=== PATIENT | male | born 1950 | race Caucasian/White ===

== ENCOUNTER → 2017-09-06 | Outpatient (CLI) | payer MEDICARE | END | disposition home or self-care (01) | LOC: KCIC 08:36 | DX: M16.12 Unilateral primary osteoarthritis, left hip (principal); G89.29 Other chronic pain | CPT/HCPCS: 73502 ==

== ENCOUNTER → 2019-03-18 | Outpatient (CLI) | payer MEDICARE ==
[~2019-03-18] MED LIST: ACIT25CA PO; ATOR40TA PO; FERR-36 PO; MULT-121 PO; NAPR220T70 PO; PANT40TA77 PO
[2019-03-18 09:36] LABS: BASO # 0.1 x10^3/uL (0.0-0.2); BASO % 1 % (0-3); EOS # 0.4 x10^3/uL (0.0-0.7); EOS % 5 % (0-3); HEMATOCRIT 48.4 % (39.0-53.0); HEMOGLOBIN 16.2 g/dL (13.0-17.5); LYMPH # 1.4 x10^3/uL (1.0-4.8); LYMPH % 21 % (24-48); MEAN CORPUSCULAR HEMOGLOBIN 34 pg (25-35); MEAN CORPUSCULAR HGB CONC 34 g/dL (31-37); MEAN CORPUSCULAR VOLUME 101 fL (79-100); MONO # 0.6 x10^3/uL (0.0-1.1); MONO % 9 % (0-9); NEUT # 4.5 x10^3/uL (1.8-7.7); NEUT % 64 % (31-73); PLATELET COUNT 242 x10^3/uL (140-400); RED CELL DISTRIBUTION WIDTH 13.2 % (11.5-14.5)
[2019-03-18 09:45] LABS: PROTHROMBIN TIME PATIENT 12.3 SEC (11.7-14.0)
[2019-03-18 09:50] LABS: ALBUMIN 4.1 g/dL (3.4-5.0); CALCIUM 9.2 mg/dL (8.5-10.1); GFR 74.5; POTASSIUM 4.1 mmol/L (3.5-5.1)
--- NOTE | 2019-03-18 12:49 | EKG ---
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
--- NOTE | 2019-03-18 14:55 | RAD ---
CHEST PA LATERAL INDICATION: Preop examination. COMPARISON STUDY: None. FINDINGS: Lungs: Normal lung volume. No pulmonary mass or consolidation. The tracheobronchial tree and hilar structures are normal. Pleura: No pleural effusion or pneumothorax. Heart and Mediastinum: The cardiomediastinal silhouette is normal. Tortuosity of the thoracic aorta. Bones and Soft Tissues: Degenerative changes of the spine. IMPRESSION: No acute cardiopulmonary process. Electronically signed by: Esau Condon MD (03/18/2019 2:52 PM) [facility]
== END | disposition home or self-care (01) ==
LOC: SURGPAT 12:30
PROVIDERS: ATTEND Orthopaedic Surgery
DX: Z01.818 Encounter for other preprocedural examination (principal); M16.12 Unilateral primary osteoarthritis, left hip; E78.5 Hyperlipidemia, unspecified
CPT/HCPCS: 36415; 71046; 80048; 82040; 82306; 85025; 85610; 85651; 85730; 87641; 93005

== ENCOUNTER 2019-03-26 08:16 | Inpatient (IN) | payer MEDICARE ==
[2019-03-26] VITALS (8 sets, daily range): BP systolic 92–132; BP diastolic 59–81
[~2019-03-26] VITALS: Ht 177.8 cm; Wt 85.0 kg
[~2019-03-26 08:16] MED LIST changes: +ACETAMINOPHEN 500 MG TABLET PO PRN; +GABAPENTIN 300 MG CAPSULE. PO PRN; +IV RINGERS,LACTATED 1000ML 1,000 ML IV SCH; +LIDOCAINE 1% PF 2 ML VIAL. ID PRN; +ONDANSETRON PF 4 MG/2 ML VIAL. IV PRN; +PROCHLORPERAZINE 10 MG/2 ML VIAL. IV PRN; +TRANEXAMIC ACID 1,000 MG in IV NS 50ML -- 1ST BAG INJ ONE; +TRANEXAMIC ACID 1,000 MG in IV NS 50ML -- 2ND BAG INJ ONE; +fentaNYL PF VIAL 100 MCG/2 ML VIAL IV PRN
[2019-03-26] MEDS ORDERED: DEXAMETHASONE SOD PHOS 4 MG/ML VIAL ONE (08:45)
[2019-03-26] MEDS ORDERED: ROCURONIUM 50 MG/5 ML VIAL. ONE (08:45)
[2019-03-26] MEDS ORDERED: PROPOFOL 20 ML IV ONE (08:45)
[2019-03-26] MEDS ORDERED: LIDOCAINE 2% PF 5 ML VIAL. ONE (08:45)
[2019-03-26] MEDS ORDERED: ONDANSETRON PF 4 MG/2 ML VIAL. ONE (08:45)
[2019-03-26] MEDS ORDERED: fentaNYL PF VIAL 100 MCG/2 ML VIAL ONE ×2 (08:46→11:31)
[2019-03-26 09:54] LABS: PROTHROMBIN TIME PATIENT 13.1 SEC (11.7-14.0)
[2019-03-26] MEDS ORDERED: WARF-78 PO (09:57)
--- NOTE | 2019-03-26 10:02 | HP ---
ADMIT DATE: 03/26/2019 CHIEF COMPLAINT: Bilateral hip pain, left worse than right. HISTORY OF PRESENT ILLNESS: The patient has a couple of years or more of bilateral hip pain, left worse than right that has been very severe recently that occurs in the hip and groin area, sometimes sharp and worse with significant exertion, especially being on his feet for an extended period of time playing golf. He had a recent GI bleed due to anti-inflammatories, which was treated at [facility]. PAST MEDICAL HISTORY: Significant for the GI bleed, esophagitis, prostate cancer, psoriasis, hyperlipidemia. PAST SURGICAL HISTORY: Prostatectomy and hernia repair. FAMILY HISTORY: Mother was from complications of tuberculosis. Father from a blood clot at 88 years old and family history also of heart attack and stroke. SOCIAL HISTORY: He smokes about a half pack per day of cigars for over 40 years. Denies drug use. Occasional social alcohol consumption. He is , accompanied by his today. MEDICATIONS: List is reviewed, which includes Pepcid, Aleve, Lipitor, pantoprazole. ALLERGIES: He has no technical drug allergies, but indicates that [employer] HAS GIVEN HIM ITCHING IN THE PAST. REVIEW OF SYSTEMS: Denies any chest pain, shortness of breath, fever, chills, other constitutional symptoms. Significant for bilateral hip pain, left worse than right and both groin areas. PHYSICAL EXAMINATION: VITAL SIGNS: Per admission sheet. HEENT: Atraumatic, normocephalic. HEART: Regular rate and rhythm. LUNGS: Clear to auscultation bilaterally. ABDOMEN: Benign. EXTREMITIES: Examination of both hips reveals decreased range of motion in both hips, left more severe than the right. Normal motion, bilateral knees and ankles with normal stability. Antalgic gait. IMAGING: X-rays show severe degenerative joint disease in both hips. IMPRESSION: Primary osteoarthritis of both hips and bilateral hip pain, left more than right. TREATMENT PLAN: I had gone over with him previously the rationale for possible surgical intervention, the possibility of infection, nerve or blood vessel damage, leg length inequality, premature wear or loosening, instability, medical or other anesthetic complications among others, especially his concern for blood clots associated with the surgery and some of his family history and the risk of blood thinner medication given his history of GI bleed in the recent past. I had discussed this with Dr. Baker, his family physician, who felt that he should have the normal Coumadin prophylaxis, but remain on the pantoprazole being familiar with his previous history. The patient agrees with this approach and we will proceed with left total hip arthroplasty and [facility] admission to follow. CHERISE BACA MD DR: PEGGY/abdirizak JOB#: [id number] / [id number]
[2019-03-26] MEDS ORDERED: NEOSTIGMINE METHYLSULFATE 5 MG/5 ML SYRINGE. ONE (11:59)
[2019-03-26] MEDS ORDERED: GLYCOPYRROLATE 1 MG/5 ML VIAL. ONE (11:59)
[2019-03-26] MEDS ORDERED: IV NORMAL SALINE 1000ML BAG 1,000 ML IV SCH (12:12)
[2019-03-26] MEDS ORDERED: fentaNYL PF VIAL 100 MCG/2 ML VIAL IV PRN (12:15)
[2019-03-26] MEDS ORDERED: DEXTROSE 50% 25 GM / 50ML DISP.SYRIN. IV PRN (12:15)
[2019-03-26] MEDS ORDERED: IV DEXTROSE 5% 250 ML BAG. IV PRN (12:15)
[2019-03-26] MEDS ORDERED: PROCHLORPERAZINE 5 MG TABLET. PO PRN (12:15)
[2019-03-26] MEDS ORDERED: MORPHINE SULFATE 2 MG/ML VIAL. IV PRN (12:15)
[2019-03-26] MEDS ORDERED: diphenhydrAMINE 50 MG/ML VIAL IV PRN (12:15)
[2019-03-26] MEDS ORDERED: 0.9 % SODIUM CHLORIDE 10 ML DISP.SYRIN. IV PRN (12:15)
[2019-03-26] MEDS ORDERED: ZOLPIDEM 5 MG TABLET. PO PRN (12:15)
[2019-03-26] MEDS ORDERED: CALCIUM CARBONATE 500 MG TAB.CHEW PO PRN (12:15)
--- NOTE | 2019-03-26 12:28 | PDOC4 ---
Operative Note Operative Note Date of surgery: 03/26/2019 Preoperative diagnosis: Left hip degenerative joint disease Postoperative diagnosis: Same Operative procedure: Left total hip arthroplasty Surgeon: Virginia Assist: Marian Anesthesia: Gen. Estimated blood loss: 100 mL Complications: None Specimens: Femoral head to pathology Drains: Intra-articular catheter only, no Hemovac drain placed Operative indications: Please see my clinic notes and preoperative history and physical for detailed operative indications and note that preoperatively we covered the fact that both hips are hurting the left worse than the right we talked through the risks benefits postoperative course of total hip arthroplasty including the possibility of infection nerve or blood vessel damage instability premature wear or loosening leg length inequality medical or other anesthetic consultations among others all his questions were answered informed consent was obtained and he agrees to proceed with surgical evaluation and treatment. Operative text: Patient was identified procedure verified patient placed in the supine position on operating table. After adequate amounts of general anesthesia were administered he was placed decubitus left side up using the Stulberg hip positioner all bony prominences were well-padded and the left hip was prepped and draped in standard sterile fashion. After timeout was performed patient procedure identified and verified curvilinear incision was made centered over the greater trochanter of the left hip dissection carried out down to the iliotibial band and gluteal fascia which were split in line with their fibers Charnley retractor was placed external rotators were divided from their insertion and hip capsule was split in a T fashion. The hip was then dislocated cut with the aid of the cutting guide femoral head was removed and sent to pathology reaming was started at a size 48 after excision of the contents of the fovea and labrum and reaming carried up to a size 53. Anterior bone was removed with an osteotome and electrocautery to correspond to the anterior rim of the reamer. A size 54 [employer] sticktight coated hemispherical cup with cluster holes was impacted in proper version a single superiorly directed screw for additional fixation and a size 36 mm standard liner was impacted. Femur was then reamed and broached up to a size 13 which was trial fit and the +4 component with standard neck length made leg length slightly long and I converted for stability to a high offset component with a +0 which equalized the leg length reproduced offset and provided excellent stability to about 60 inte rnal rotation at 90 hip flexion. Trial components were removed thorough irrigation carried out normal saline solution and a high offset Synergy stem was impacted and excellent version and a 36 millimeter +0 Oxinium femoral head was impacted into place to engage the Amezquita taper and reduced found to have equivalent stability reproduction of offset and leg length as noted above. Thor ough irrigation again carried out normal saline solution hip capsule was repaired with #5 Ethibond suture transosseous repair of the external rotators with #5 Ethibond as well I elected not to place a Hemovac drain due to the lack of bleeding and injected the intra-articular mixture throughout the joint capsule placed and intra-articular catheter fascia was closed with #5 Ethibond reinforced with #1 PDS strata fix suture in a running fashion subcutaneous closure with buried Vicryl suture skin closure with subcuticular PDS Monocryl and a belkys dressing with Acticoat was placed patient was returned recovery room in stable condition having tolerated procedure well. Derek Fonseca nurse practitioner was present for the case and assisted in the positioning prepping draping retraction and skin closure CHERISE BACA MD Mar 26, 2019 12:28
[2019-03-26] MEDS ORDERED: SEVOFLURANE 61 TO 120 MINUTES. IH ONE (12:29)
[2019-03-26] MEDS: MORPHINE SULFATE 2 MG/ML VIAL. IV PRN ×2 (12:38→12:46)
[2019-03-26] MEDS: HYDROmorphone 2 MG/ML VIAL IV PRN ×4 (12:53→13:24)
[2019-03-26] MEDS ORDERED: MENT118G TP (13:54)
--- NOTE | 2019-03-26 14:40 | RAD ---
EXAM: Left hip and pelvis, 2 views. HISTORY: Arthroplasty. COMPARISON: 09/06/2017 FINDINGS: A frontal view of the pelvis and frontal view of the left hip are obtained. There is a left hip arthroplasty in expected position. There is surrounding soft tissue gas due to recent surgery. There is right hip joint space narrowing with subchondral sclerosis marginal spurring. IMPRESSION: 1. Left hip arthroplasty in expected position. 2. Moderate to severe right hip osteoarthritis. Electronically signed by: Divine Rod MD (03/26/2019 2:37 PM) [place] [id number]
--- NOTE | 2019-03-26 15:56 | NUR ---
received Isaias from recovery. he was rating his pain a "4" in the area right above his knee. he has good sensation, motion and pulses bilateral lower extremities. history completed . -constance arrived. Wolf monge ordered for knee area. left at bedside per request. dozes at intervals
[2019-03-26] MEDS ORDERED: WARFARIN 7.5 MG TABLET. PO ONE (16:00)
[2019-03-26] MEDS: ONDANSETRON ODT 4 MG TAB.RAPDIS. PO SCH (16:59)
[2019-03-26] MEDS: FERROUS SULFATE 325 MG TABLET. PO SCH (16:59)
[2019-03-26] MEDS: METHYL SALICYLATE/MENTHOL TOPICAL CREAM 57GM TUBE. TP SCH ×2 (17:00→21:00)
[2019-03-26] MEDS: ONDANSETRON PF 4 MG/2 ML VIAL. IV SCH (18:00)
[2019-03-26] MEDS: ATORVASTATIN CALCIUM 40 MG TABLET. PO SCH (20:25)
[2019-03-27] MEDS: oxyCODONE IR 5 MG TABLET PO PRN (02:28)
--- NOTE | 2019-03-27 02:30 | NUR ---
Awake, c/o pain and reflux. Renita and Tums given. VSS. Voiding large amount per urinal.
[2019-03-27 03:00] VITALS: BP 100/62
[2019-03-27 03:09] VITALS: BP 94/53
[2019-03-27 05:10] LABS: PROTHROMBIN TIME PATIENT 15.1 SEC (11.7-14.0)
[2019-03-27 06:00] LABS: HEMATOCRIT 40.8 % (39.0-53.0); HEMOGLOBIN 13.6 g/dL (13.0-17.5)
[2019-03-27] MEDS ORDERED: MAGNESIUM HYDROXIDE 2,400 MG/30 ML ORAL.SUSP. PO PRN (06:00)
[2019-03-27] MEDS ORDERED: GABAPENTIN 100 MG CAPSULE. PO SCH (06:00)
[2019-03-27] MEDS: ONDANSETRON PF 4 MG/2 ML VIAL. IV SCH ×3 (06:00→11:06)
[2019-03-27] MEDS: ONDANSETRON ODT 4 MG TAB.RAPDIS. PO SCH ×3 (06:00→11:06)
[2019-03-27] MEDS: traMADol 50 MG TABLET PO SCH ×3 (06:06→17:12)
[2019-03-27] MEDS: PANTOPRAZOLE 40 MG TABLET.DR. PO SCH (06:06)
[2019-03-27 06:50] VITALS: BP 106/62
--- NOTE | 2019-03-27 07:48 | PDOC ---
ORTHO PROGRESS NOTES Subjective Patient states feeling well with no complaint of pain at this time , just feeling of heaviness in leg. Post-op Day: 1 Procedure L GAVIN Vitals Vital Signs Date Time Temp Pulse Resp B/P (MAP) Pulse Ox O2 Delivery O2 Flow Rate FiO2 03/27/19 07:06 Room Air 03/27/19 06:50 98.8 75 16 106/62 (77) 90 98.8 03/26/19 13:06 10.0 Labs Laboratory Tests Test 03/26/19 09:00 03/27/19 04:50 Prothrombin Time 13.1 SEC (11.7-14.0) 15.1 SEC (11.7-14.0) Prothromb Time International Ratio 1.0 (0.8-1.1) 1.2 (0.8-1.1) Activated Partial Thromboplast Time 31 SEC (24-38) Hemoglobin 13.6 g/dL (13.0-17.5) Hematocrit 40.8 % (39.0-53.0) Mean Corpuscular Hemoglobin Concent 33 g/dL (31-37) Laboratory Tests Test 03/26/19 09:00 03/27/19 04:50 Prothrombin Time 13.1 SEC (11.7-14.0) 15.1 SEC (11.7-14.0) Prothromb Time International Ratio 1.0 (0.8-1.1) 1.2 (0.8-1.1) Activated Partial Thromboplast Time 31 SEC (24-38) Hemoglobin 13.6 g/dL (13.0-17.5) Hematocrit 40.8 % (39.0-53.0) Mean Corpuscular Hemoglobin Concent 33 g/dL (31-37) Notes Awake and alert sitting up in chair at bedside eating breakfast. Assessment and Plan POD # 1 S/P L GAVIN motor and sensation intact distally calf soft and non tender dressing dry and intact PT today MARY JO CHRISTIANSON APRN Mar 27, 2019 07:48
[2019-03-27] MEDS: FERROUS SULFATE 325 MG TABLET. PO SCH ×2 (08:00→15:39)
[2019-03-27] MEDS: SENNOSIDES/DOCUSATE 8.6/50MG TABLET. PO SCH (08:14)
[2019-03-27] MEDS: MULTIVITAMIN with MINERAL TABLET. PO SCH (08:14)
[2019-03-27] MEDS: ACITRETIN 25 MG PO SCH (08:15)
[2019-03-27] MEDS: ACETAMINOPHEN 500 MG TABLET PO SCH ×3 (08:15→20:46)
[2019-03-27] MEDS: METHYL SALICYLATE/MENTHOL TOPICAL CREAM 57GM TUBE. TP SCH ×4 (08:17→21:00)
[2019-03-27] MEDS ORDERED: FERROUS SULFATE 325 MG TABLET. PO SCH (09:00)
--- NOTE | 2019-03-27 10:19 | NUR ---
Pharmacy Warfarin Dosing Note S:Pharmacy consulted to assist with anticoagulation therapy started 03/26/19 with target INR: 1.6 - 2.5 O:BRENDA MCDUFFIE is a 69 year old M with GAVIN LABS: Last INR: 1.2 Last HGB: 13.6 Last HCT: 40.8 Last PLT: - Last dose of 7.5 mg given on 03/26/19 at 1659 A:INR of 1.2 is below desired range. Target range for this patient is: 1.6 - 2.5 P: Warfarin dose: 5 mg Today at 1600 Next INR due 03/28/19. Pharmacy anticoagulation service will continue to follow. CODEY ANSARI RPH, 03/27/19 1019
--- NOTE | 2019-03-27 10:36 | NUR ---
Patient refused his iron and his soriatane this morning stating he did not need to take either of those medications at this time. HMG 13.6 and psoriasis on elbows doing "okay" at this time according to patient. Patient refused intermittent pain medication of oxy but is taking tramadol scheduled without any questions or concerns noted. Will continue to monitor.
[2019-03-27] MEDS ORDERED: ONDANSETRON ODT 4 MG TAB.RAPDIS. PO PRN (12:00)
[2019-03-27] MEDS ORDERED: ONDANSETRON PF 4 MG/2 ML VIAL. IV PRN (12:00)
[2019-03-27] MEDS ORDERED: WARFARIN 5 MG TABLET. PO ONE (16:00)
[2019-03-27] MEDS ORDERED: BISACODYL 10 MG SUPP.RECT. PR PRN (16:00)
[2019-03-27 18:18] VITALS: BP 109/66
--- NOTE | 2019-03-27 19:10 | NUR ---
In recliner. Denies pain currently, reports medial thigh numbness. Has scant amount bloody nasal mucus , "so dry in here." Breathing through damp washcloth helped. Saline lock DC'd per request.
--- NOTE | 2019-03-27 20:00 | NUR ---
Patient has put himself to bed, without calling for staff assistance. We did discuss the importance of calling for assistance (at 1910). "I have to learn how to do this by myself at home." "my won't be able to help me." Urinal at bedside. Call light in reach.
[2019-03-27] MEDS: ATORVASTATIN CALCIUM 40 MG TABLET. PO SCH (20:45)
[2019-03-28] MEDS: ACETAMINOPHEN 500 MG TABLET PO SCH ×4 (03:00→20:44)
[2019-03-28] MEDS: oxyCODONE IR 5 MG TABLET PO PRN ×5 (03:35→20:45)
[2019-03-28] MEDS: traMADol 50 MG TABLET PO SCH ×4 (05:50→18:18)
[2019-03-28] MEDS: PANTOPRAZOLE 40 MG TABLET.DR. PO SCH (05:50)
--- NOTE | 2019-03-28 05:58 | NUR ---
Tramadol given. Rating left hip pain 10/27. Believes his left leg is longer than right. Encouraged pt to rest in recliner w/ feet elevated and ice pack on. Will continue to monitor and discuss w/ day RN.
[2019-03-28 06:03] VITALS: BP 100/56
[2019-03-28 06:44] LABS: HEMATOCRIT 40.3 % (39.0-53.0); HEMOGLOBIN 13.5 g/dL (13.0-17.5)
[2019-03-28 06:54] LABS: PROTHROMBIN TIME PATIENT 17.1 SEC (11.7-14.0)
--- NOTE | 2019-03-28 07:10 | NUR ---
C/o "not being able to put any weight on my left leg." Reports continued numbness in thigh and "bone pain." Encouraged him to not get up alone or at all until seen by physician.
--- NOTE | 2019-03-28 08:07 | NUR ---
Dr. Coleman notified of the increase in pain, and his operative leg being longer than his right leg. He is to flex and dorsiflex his left foot without problems. he has a good pulse. he is complaining that his left outer thigh is numb and he has pain in the left buttock region. informed that the pain in left buttock is not unusual. resting is recliner with both legs elevated. he is rating his pain 4-5 sitting and when walking on his leg 7-8.
[2019-03-28] MEDS: METHYL SALICYLATE/MENTHOL TOPICAL CREAM 57GM TUBE. TP SCH ×4 (09:00→20:45)
[2019-03-28] MEDS: ACITRETIN 25 MG PO SCH (09:00)
[2019-03-28] MEDS: SENNOSIDES/DOCUSATE 8.6/50MG TABLET. PO SCH (09:40)
[2019-03-28] MEDS: FERROUS SULFATE 325 MG TABLET. PO SCH ×2 (09:41→16:30)
[2019-03-28] MEDS: MULTIVITAMIN with MINERAL TABLET. PO SCH (09:42)
[2019-03-28] MEDS: CYCLOBENZAPRINE 10 MG TABLET. PO PRN ×2 (10:21→16:26)
--- NOTE | 2019-03-28 11:58 | NUR ---
BRENDA IS FEELING BETTER AND LEFT HIP/LEG IS FEELING BETTER AFTER MUSCLE RELAXANT AND SPEAKING MARY JO REGARDING CONCERNS ABOUT HIS PAIN.
--- NOTE | 2019-03-28 12:35 | PDOC ---
ORTHO PROGRESS NOTES Subjective Muscle spasms right lateral and posterior thigh since yesterday. Post-op Day: 2 Procedure LEFT hip GAVIN Vitals Vital Signs Date Time Temp Pulse Resp B/P (MAP) Pulse Ox O2 Delivery O2 Flow Rate FiO2 03/28/19 11:43 16 03/28/19 08:00 Room Air 03/28/19 06:03 98.1 72 100/56 (71) 94 98.1 Labs Laboratory Tests Test 03/27/19 04:50 03/28/19 06:30 Hemoglobin 13.6 g/dL (13.0-17.5) 13.5 g/dL (13.0-17.5) Hematocrit 40.8 % (39.0-53.0) 40.3 % (39.0-53.0) Mean Corpuscular Hemoglobin Concent 33 g/dL (31-37) 34 g/dL (31-37) Prothrombin Time 15.1 SEC (11.7-14.0) 17.1 SEC (11.7-14.0) Prothromb Time International Ratio 1.2 (0.8-1.1) 1.4 (0.8-1.1) Laboratory Tests Test 03/28/19 06:30 Hemoglobin 13.5 g/dL (13.0-17.5) Hematocrit 40.3 % (39.0-53.0) Mean Corpuscular Hemoglobin Concent 34 g/dL (31-37) Prothrombin Time 17.1 SEC (11.7-14.0) Prothromb Time International Ratio 1.4 (0.8-1.1) X-Rays PROCEDURE: HIP LEFT 2V WITH PELVIS EXAM: Left hip and pelvis, 2 views. HISTORY: Arthroplasty. COMPARISON: 09/06/2017 FINDINGS: A frontal view of the pelvis and frontal view of the left hip are obtained. There is a left hip arthroplasty in expected position. There is surrounding soft tissue gas due to recent surgery. There is right hip joint space narrowing with subchondral sclerosis marginal spurring. IMPRESSION: 1. Left hip arthroplasty in expected position. 2. Moderate to severe right hip osteoarthritis. Electronically signed by: Divine Rod MD (03/26/2019 2:37 PM) [place] [id number] Notes Patient tender in the LEFT lateral hip and IT band, posterior hip muscles. No medial mass or tenderness, nor palpable cords of the calfs or thighs. Neg Aurelio's sign bilaterally. Appears to be resting fairly comfortably, sitting. Neurovascularly intact lower extremities. DP pulses 2+ bilaterally. Incision dressed no indications of complications. Problems: (1) S/P hip replacement Assessment and Plan Start Flexeril 10 mg po q 8 hrs prn muscle spasm. Anticipate discharge tomorrow PM. Problem Qualifiers (1) S/P hip replacement: Laterality: left Qualified Codes: Z96.642 - Presence of left artificial hip joint MARY JO STEVENS Jr. PAC Mar 28, 2019 12:35 pm
--- NOTE | 2019-03-28 15:17 | NUR ---
Pharmacy Warfarin Dosing Note S: Pharmacy consulted to assist with anticoagulation therapy started 03/26/19 O: BRENDA MCDUFFIE is a 69 year old M with GAVIN LABS: Last INR: 1.4 Last HGB: 13.5 Last HCT: 40.3 Last PLT: Last dose of 5 mg given on 03/27/19 at 1539 A:INR of 1.4 is below desired range. Target range for this patient is: 1.6 - 2.5 P: Warfarin dose: 5 mg Today at 1600 Bridge Therapy: none Next INR due tomorrow Pharmacy anticoagulation service will continue to follow. Radha Wong RPH, 03/28/19 6825
[2019-03-28] MEDS ORDERED: WARFARIN 5 MG TABLET. PO ONE (16:00)
--- NOTE | 2019-03-28 17:45 | NUR ---
Isaias states that he is feeling better. his pain is under control; he has less spasms and the Flexeril is working. spirits are better regarding motion and surgery. attended both rehab sessions and tolerated better.
[2019-03-28 18:15] VITALS: BP 92/62
[2019-03-28] MEDS: ATORVASTATIN CALCIUM 40 MG TABLET. PO SCH (20:45)
[2019-03-29] MEDS: traMADol 50 MG TABLET PO SCH ×3 (00:03→12:14)
[2019-03-29] MEDS: ACETAMINOPHEN 500 MG TABLET PO SCH ×3 (03:02→14:57)
[2019-03-29] MEDS: oxyCODONE IR 5 MG TABLET PO PRN ×3 (03:03→14:57)
[2019-03-29 03:58] LABS: HEMATOCRIT 37.3 % (39.0-53.0); HEMOGLOBIN 12.7 g/dL (13.0-17.5)
[2019-03-29 04:07] LABS: PROTHROMBIN TIME PATIENT 17.9 SEC (11.7-14.0)
[2019-03-29] MEDS: PANTOPRAZOLE 40 MG TABLET.DR. PO SCH (06:22)
[2019-03-29 06:25] VITALS: BP 94/63
[2019-03-29] MEDS: METHYL SALICYLATE/MENTHOL TOPICAL CREAM 57GM TUBE. TP SCH ×2 (08:37→12:15)
[2019-03-29] MEDS: FERROUS SULFATE 325 MG TABLET. PO SCH (08:38)
[2019-03-29] MEDS: MULTIVITAMIN with MINERAL TABLET. PO SCH (08:38)
[2019-03-29] MEDS: SENNOSIDES/DOCUSATE 8.6/50MG TABLET. PO SCH (08:38)
[2019-03-29] MEDS ORDERED: OXYC5CAP PO (09:43)
--- NOTE | 2019-03-29 09:51 | SNU/HH DC ---
DISCHARGE WITH HOME HEALTH DISCHARGE INFORMATION: Condition on Discharge: Stable CODE STATUS: Code Status: Full HOME HEALTH: Face to Face: I certify this patient is under my care and that I, or a nurse practitioner or physician's public health training assistant working with me, had a face to face encounter that meets the physician face to face encounter requirements with this patient on [03/29/2019]. 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 Coleman 2 weeks postoperatively Warfarin Follow UP: testing as directed by [place] pharmacy for ongoing Coumadin dosing TREATMENT/EQUIPMENT ORDERS: Adaptive Equipment Issued: Walker CERTIFICATION STATEMENT: Certification Statement: Certification Statement: Based on the above finding, I certify that this patient is confined to the home and needs intermittent senior living care, physical therapy and/or speech therapy, or continues to need occupational therapy.~ This patient is under my care, and I have initiated the establishment of the plan of care.~ This patient will be followed by myself or a community physician who will periodically review the plan of care. Home Meds Reported Medications Menthol (BIOFREEZE) 118 Ml Gel..ml., 1 VICTOR MANUEL TP QID for pain for 7 Days, #118 ML 0 Refills 03/26/19 Warfarin Sodium (COUMADIN) 5 Mg Tablet, 5 MG PO X1HS SURGERY for PRIOR TO SURGERY, #30 TAB 03/26/19 Pantoprazole Sodium (PROTONIX ) 40 Mg Tablet.dr, 40 MG PO DAILYAC for GERD, TAB 03/18/19 Acitretin (ACITRETIN) 25 Mg Capsule, 25 MG PO DAILY for PSORIASIS TREATMENT, CAP 03/18/19 Atorvastatin Calcium (LIPITOR) 40 Mg Tablet, 40 MG PO HS for FOR CHOLESTEROL, #30 TAB 0 Refills 03/18/19 Multivitamin (MULTIPLE VITAMINS) 1 Each Tablet, 1 EACH PO DAILY for SUPPLEMENT, TAB 03/18/19 Ferrous Sulfate (IRON) 325 Mg Tablet, 325 MG PO DAILY for TREAT ANEMIA, TAB 03/18/19 CHERISE COLEMAN MD Mar 29, 2019 09:51
--- NOTE | 2019-03-29 11:08 | NUR ---
Pharmacy Warfarin Dosing Note S: Pharmacy consulted to assist with anticoagulation therapy started 03/26/19 O: BRENDA MCDUFFIE is a 69 year old M with GAVIN LABS: Last INR: 1.5 Last HGB: 13.5 Last HCT: 40.3 Last PLT: Last dose of 5 mg given on 03/28/19 at 1626 Vitamin K given: N A:INR of 1.5 is below desired range. Target range for this patient is: 1.6 - 2.5 P: Warfarin dose: 4 mg Prior to Discharge and daily Bridge Therapy: None Next INR due Monday04/01/19 to be drawn by home health RN Pharmacy anticoagulation service will continue to follow. Radha Wong RPH, 03/29/19 2008
[2019-03-29] MEDS ORDERED: WARFARIN 4 MG TABLET. PO ONE (13:00)
[2019-03-29 14:28] VITALS: BP 119/59
--- NOTE | 2019-03-30 13:22 | DS ---
DATE OF DISCHARGE: 03/29/2019 PRINCIPAL DIAGNOSIS: Left hip degenerative joint disease. PROCEDURE: Left total hip arthroplasty. DISPOSITION: Home with home health. ACTIVITY: Weightbearing as tolerated. Standard total hip precautions. FOLLOWUP: Follow up with Dr. Coleman in 2 weeks postoperatively. DISPOSITION MEDICATIONS: Oxycodone 5 mg p.o. q. 4 hours p.r.n. pain, Coumadin as directed by anticoagulation clinic, ad resume preoperative medications. BRIEF DESCRIPTION OF HOSPITAL COURSE: The patient underwent uncomplicated left total hip arthroplasty and aside from some expected soreness and stiffness with physical therapy, otherwise got up and around well with therapy. He remained medically stable throughout his stay and was able to transfer and ambulate satisfactorily. MARK dressing remains clean, dry, and intact. He was instructed to report any redness, drainage, fever, or chills and keep the dressing intact unless it is saturated with drainage. He can otherwise shower if the dressing is intact and was otherwise discharged in stable condition with home health followup. CHERISE COLEMAN MD DR: PEGGY/abdirizak JOB#: [id number] / [id number]
--- NOTE | 2019-04-02 17:07 | PATHOLOGY ---
[facility] Accession Number: [id number] . 01 Material submitted: . femur - LEFT FEMORAL HEAD. Modifiers: left, head . 01 Clinical history: . Osteoarthritis . 02 Diagnosis: Femoral head, left hip arthroplasty: - Advanced degenerative arthritis, with focal subarticular fibrosis. ([facility] 04/[facility] 04/02/2019 1350 Local . 02 Comment: There is no evidence of malignancy. ([facility] 04/02/2019) . 02 Electronically signed: . Timothy Dominguez MD, Pathologist NPI- [id number] . 01 Gross description: . The specimen is received in formalin, labeled "Isaias Moody, left femoral head". Received is a femoral head with attached femoral neck measuring 4.9 x 4.9 x 5.3 cm in greatest dimensions. The articular surface is smooth to granular in appearance with evidence of eburnation, as well as osteophytic lipping. Sectioning reveals yellow-elizabeth cut surfaces displaying a single cystic structure measuring 0.9 cm filled with cloudy mucoid material. The specimen is submitted representatively in cassette A1, following decalcification. ([facility]; 03/27/2019) QAC/QAC 03/27/2019 0851 Local . 02 Pathologist provided ICD-10: M16.12 . 02 CPT . 014492, 924371 Specimen Comment: A courtesy copy of this report has been sent to [phone], [phone] Specimen Comment: [id number] Specimen Comment: Report sent to / DR KAY Performed at: [address], [place], [place] [id number] MD Parish De Los Santos MD Phone: [phone] Performed at: [address] [facility] [address] [place], [place] [id number] MD Timothy Dominguez MD Phone: [phone]
== END 2019-03-29 15:47 | disposition home health service (06) | DRG 470 ==
LOC: OPSVCIP 08:16 → 4 SOUTHEST 13:57
PROVIDERS: ADMIT Orthopaedic Surgery; ATTEND Orthopaedic Surgery
PROC: 0SRB06Z Replacement of Left Hip Joint with Oxidized Zirconium on Polyethylene Synthetic Substitute, Open Approach (ICD-10-PCS; principal; 2019-03-26 10:10)
DX: M16.12 Unilateral primary osteoarthritis, left hip (principal); E78.5 Hyperlipidemia, unspecified; F17.210 Nicotine dependence, cigarettes, uncomplicated; L40.9 Psoriasis, unspecified; Z82.3 Family history of stroke; Z82.49 Family history of ischemic heart disease and other diseases of the circulatory system; Z85.46 Personal history of malignant neoplasm of prostate; Z96.642 Presence of left artificial hip joint; Z88.8 Allergy status to other drugs, medicaments and biological substances; Z79.899 Other long term (current) drug therapy
CPT/HCPCS: 36415; 73502; 85014; 85018; 85610; 85730; 86850; 86900; 86901; 88304; 88311; 99406; A7015; C1713; J0171; J0696; J1100; J1170; J2001; J2270; J2405; J2704; J2710; J2795; J3010; J3490; J7030; Q0162; 97116; 97150; 97530; 97535; G0378

== ENCOUNTER → 2019-07-01 | Outpatient (CLI) | payer MEDICARE ==
[~2019-07-01] MED LIST changes: -ACETAMINOPHEN 500 MG TABLET PO PRN; -GABAPENTIN 300 MG CAPSULE. PO PRN; -IV RINGERS,LACTATED 1000ML 1,000 ML IV SCH; -LIDOCAINE 1% PF 2 ML VIAL. ID PRN; +MENT118G TP; -ONDANSETRON PF 4 MG/2 ML VIAL. IV PRN; +OXYC5CAP PO; -PROCHLORPERAZINE 10 MG/2 ML VIAL. IV PRN; +SULF1TAB24 PO; -TRANEXAMIC ACID 1,000 MG in IV NS 50ML -- 1ST BAG INJ ONE; -TRANEXAMIC ACID 1,000 MG in IV NS 50ML -- 2ND BAG INJ ONE; +WARF-78 PO; -fentaNYL PF VIAL 100 MCG/2 ML VIAL IV PRN
[2019-07-01 18:07] LABS: BF CLARITY CLOUDY; BF COLOR YELLOW; BF SOURCE SYNOVIAL
[2019-07-01 18:09] LABS: BF MON % 1 %; BF PMN % 99 %
== END ==
LOC: SPEC 16:46
PROVIDERS: ATTEND Orthopaedic Surgery
DX: Z96.642 Presence of left artificial hip joint (principal)
CPT/HCPCS: 87071; 87075; 89050

== ENCOUNTER 2019-07-05 10:40 | Day surgery (SDC) | payer MEDICARE ==
[~2019-07-05 10:40] MED LIST changes: -SULF1TAB24 PO
[2019-07-05] MEDS ORDERED: CLINDAMYCIN 900MG PREMIX 50 ML IV ONE (10:45)
[2019-07-05] MEDS ORDERED: IV RINGERS,LACTATED 1000ML 1,000 ML IV SCH ×2 (11:06→11:11)
[2019-07-05] MEDS ORDERED: fentaNYL PF VIAL 100 MCG/2 ML VIAL IV PRN ×4 (11:15)
[2019-07-05] MEDS ORDERED: MORPHINE SULFATE 2 MG/ML VIAL. IV PRN ×2 (11:15)
[2019-07-05] MEDS ORDERED: LIDOCAINE 1% PF 2 ML VIAL. ID PRN ×2 (11:15)
[2019-07-05] MEDS ORDERED: HYDROmorphone 2 MG/ML VIAL IV PRN (11:15)
[2019-07-05] MEDS ORDERED: ONDANSETRON PF 4 MG/2 ML VIAL. IV PRN ×2 (11:15)
[2019-07-05] MEDS ORDERED: PROCHLORPERAZINE 10 MG/2 ML VIAL. IV PRN ×2 (11:15)
[2019-07-05 11:25] LABS: BASO # 0.1 x10^3/uL (0.0-0.2); BASO % 1 % (0-3); EOS # 0.2 x10^3/uL (0.0-0.7); EOS % 2 % (0-3); HEMATOCRIT 40.3 % (39.0-53.0); LYMPH # 1.7 x10^3/uL (1.0-4.8); LYMPH % 17 % (24-48); MEAN CORPUSCULAR HEMOGLOBIN 34 pg (25-35); MEAN CORPUSCULAR HGB CONC 35 g/dL (31-37); MEAN CORPUSCULAR VOLUME 100 fL (79-100); MONO # 0.6 x10^3/uL (0.0-1.1); MONO % 6 % (0-9); NEUT # 7.4 x10^3/uL (1.8-7.7); NEUT % 74 % (31-73); PLATELET COUNT 423 x10^3/uL (140-400); RED BLOOD COUNT 4.05 x10^6/uL (4.30-5.70); RED CELL DISTRIBUTION WIDTH 14.7 % (11.5-14.5)
[2019-07-05 11:27] LABS: CALCIUM 9.3 mg/dL (8.5-10.1); GFR 74.5; POTASSIUM 3.8 mmol/L (3.5-5.1)
[2019-07-05] MEDS ORDERED: LIDOCAINE 2% PF 5 ML VIAL. ONE (12:05)
[2019-07-05] MEDS ORDERED: DEXAMETHASONE SOD PHOS 4 MG/ML VIAL ONE (12:05)
[2019-07-05] MEDS ORDERED: fentaNYL PF VIAL 100 MCG/2 ML VIAL ONE (12:05)
[2019-07-05] MEDS ORDERED: ONDANSETRON PF 4 MG/2 ML VIAL. ONE (12:05)
[2019-07-05] MEDS ORDERED: FAMOTIDINE 20 MG/2 ML VIAL ONE (12:05)
[2019-07-05] MEDS ORDERED: PROPOFOL 20 ML IV ONE (12:05)
[2019-07-05] MEDS ORDERED: MIDAZOLAM HCL/PF 2 MG/2 ML VIAL. ONE (12:05)
[2019-07-05] MEDS ORDERED: KETAMINE HCL IN NACL, ISO-OSM 50 MG/5 ML SYRINGE ONE (12:31)
[2019-07-05] MEDS ORDERED: DESFLURANE 31 TO 60 MINUTES IH ONE (13:09)
[2019-07-05] MEDS ORDERED: SULF1TAB24 PO (13:44)
--- NOTE | 2019-07-05 13:46 | DISCH ---
DISCHARGE INSTRUCTIONS Condition on Discharge Condition on Discharge: Stable Activity After Discharge Activity Instructions for Disc: Activity as tolerated Bathing Instructions: Shower-keep dressing dry Lifting Instructions after Dis: No heavy lifting, No pulling or pushing Exercise Instruction after Dis: Exercise per therapy, Progress as tolerated Weight Bearing Status after Di: As tolerated Diet after Discharge Diet after Discharge: Regular Wound Incision Care Wound/Incision Care: Ice to area for comfort, Do not change dressing Contacting the after DC Call your doctor for: Concerns you may have Follow-Up Follow up with: Dr. Coleman Monday07/08/19 CHERISE COLEMAN MD Jul 05, 2019 13:46
[2019-07-05] MEDS ORDERED: HYDROmorphone 2 MG/ML VIAL ONE (13:59)
[2019-07-05] MEDS: HYDROmorphone 2 MG/ML VIAL IV PRN ×4 (14:03→14:42)
[2019-07-05] MEDS ORDERED: PROCHLORPERAZINE 10 MG/2 ML VIAL. ONE (14:44)
[2019-07-05] MEDS ORDERED: CALCIUM CARBONATE 500 MG TAB.CHEW PO PRN (14:45)
[2019-07-05] MEDS ORDERED: MORPHINE SULFATE 2 MG/ML VIAL. IVP PRN (14:45)
[2019-07-05] MEDS ORDERED: fentaNYL PF VIAL 100 MCG/2 ML VIAL IVP PRN (14:45)
[2019-07-05] MEDS ORDERED: PROCHLORPERAZINE 5 MG TABLET. PO PRN (14:45)
[2019-07-05] MEDS ORDERED: CLINDAMYCIN 900MG PREMIX 50 ML IV SCH (14:45)
[2019-07-05] MEDS ORDERED: oxyCODONE IR 5 MG TABLET PO PRN (14:45)
[2019-07-05] MEDS ORDERED: 0.9 % SODIUM CHLORIDE 10 ML DISP.SYRIN. IV PRN (14:45)
[2019-07-05] MEDS ORDERED: ZOLPIDEM 5 MG TABLET. PO PRN (14:45)
[2019-07-05] MEDS ORDERED: diphenhydrAMINE 50 MG/ML VIAL IVP PRN (14:45)
[2019-07-05 14:50] VITALS: BP 130/103
[2019-07-05] MEDS ORDERED: ONDANSETRON PF 4 MG/2 ML VIAL. IVP SCH (18:00)
[2019-07-05] MEDS ORDERED: ONDANSETRON ODT 4 MG TAB.RAPDIS. PO SCH (18:00)
[2019-07-06] MEDS ORDERED: MAGNESIUM HYDROXIDE 2,400 MG/30 ML ORAL.SUSP. PO PRN (06:00)
[2019-07-06] MEDS ORDERED: SENNOSIDES/DOCUSATE 8.6/50MG TABLET. PO SCH (09:00)
[2019-07-06] MEDS ORDERED: ACETAMINOPHEN 500 MG TABLET PO SCH (09:00)
[2019-07-06] MEDS ORDERED: ONDANSETRON PF 4 MG/2 ML VIAL. IVP PRN (12:00)
[2019-07-06] MEDS ORDERED: ONDANSETRON ODT 4 MG TAB.RAPDIS. PO PRN (12:00)
[2019-07-06] MEDS ORDERED: BISACODYL 10 MG SUPP.RECT. PR PRN (16:00)
--- NOTE | 2019-07-15 22:51 | PDOC4 ---
Operative Note Operative Note Date of surgery: 07/05/2019 Preoperative diagnosis: Suspected suture abscess left hip wound Postoperative diagnosis: Same Operative procedure: Irrigation debridement of left hip wound with placement of wound VAC Surgeon: Virginia Anesthesia: General Estimated blood loss: 20 cc Complications: None Intraoperative cultures sent Operative indications: Isaias is a 69-year-old male getting around very well after a total hip arthroplasty but suddenly developed some swelling and redness at the distal aspect of his incision and the appearance concerning for a possible suture abscess. I went over treatment options with him in clinic and recommended exploration of his wound in the operating room to allow thorough evaluation and cultures. In addition I felt that it would give us the most broad range of options in terms of wound treatment. All his questions were answered and he agrees to proceed with surgical evaluation and treatment. Operative text: Patient was identified procedure verified patient placed in the supine position on the operating table. After adequate amounts of general anesthesia were administered he was placed in the decubitus position left side up all bony prominences were well-padded and the left hip was prepped and draped in standard sterile fashion. After timeout was performed patient procedure identified and verified an incision was made over the distal portion of his incision and indeed he did have the appearance of a suture abscess and some surrounding fat necrosis which was sent for intraoperative culture. Any involved skin and subcutaneous tissue were sharply debrided with rondure's and underwent thorough irrigation with normal saline solution. His wound did not probe deeply beyond the fascial layer and after debridement viable tissue was noted throughout and I elected to place a wound VAC which sealed well and he was returned to recovery room in stable condition having tolerated procedure well CHERISE BACA MD Jul 15, 2019 22:51
== END 2019-07-05 16:17 | disposition home or self-care (01) ==
LOC: SURG 10:40
PROVIDERS: ATTEND Orthopaedic Surgery
DX: T81.49XA Infection following a procedure, other surgical site, initial encounter (principal); L02.416 Cutaneous abscess of left lower limb; E78.00 Pure hypercholesterolemia, unspecified; K21.9 Gastro-esophageal reflux disease without esophagitis; K57.30 Diverticulosis of large intestine without perforation or abscess without bleeding; D64.9 Anemia, unspecified; Z87.891 Personal history of nicotine dependence; Z96.642 Presence of left artificial hip joint; Z72.89 Other problems related to lifestyle; Z85.46 Personal history of malignant neoplasm of prostate; Y83.8 Other surgical procedures as the cause of abnormal reaction of the patient, or of later complication, without mention of misadventure at the time of the procedure; Y92.89 Other specified places as the place of occurrence of the external cause
CPT/HCPCS: 11042; 36415; 80048; 85025; 87071; 87075; J0780; J1100; J1170; J2250; J2405; J2704; J3010; J3490; J7030; Q0162; A4461

== ENCOUNTER → 2019-10-07 | Outpatient (CLI) | payer MEDICARE ==
[2019-09-06 10:24] VITALS: BP 118/67
[~2019-10-07] MED LIST changes: +OXYC10TA PO; +SULF1TAB24 PO; -WARF-78 PO; +WARF2.5T2 PO; +WARF5TAB2 PO
[2019-10-07 16:51] LABS: BASO # 0.1 x10^3/uL (0.0-0.2); BASO % 1 % (0-3); EOS # 0.4 x10^3/uL (0.0-0.7); EOS % 4 % (0-3); HEMATOCRIT 40.9 % (39.0-53.0); HEMOGLOBIN 14.4 g/dL (13.0-17.5); LYMPH # 1.8 x10^3/uL (1.0-4.8); LYMPH % 21 % (24-48); MEAN CORPUSCULAR HEMOGLOBIN 34 pg (25-35); MEAN CORPUSCULAR HGB CONC 35 g/dL (31-37); MEAN CORPUSCULAR VOLUME 97 fL (79-100); MONO # 0.8 x10^3/uL (0.0-1.1); MONO % 9 % (0-9); NEUT # 5.6 x10^3/uL (1.8-7.7); NEUT % 65 % (31-73); PLATELET COUNT 308 x10^3/uL (140-400); RED BLOOD COUNT 4.25 x10^6/uL (4.30-5.70); RED CELL DISTRIBUTION WIDTH 15.3 % (11.5-14.5); WHITE BLOOD COUNT 8.6 x10^3/uL (4.0-11.0)
[2019-10-07 16:52] LABS: ALBUMIN 3.5 g/dL (3.4-5.0); C-REACTIVE PROTEIN 4.1 mg/L (0-3.3); CALCIUM 8.9 mg/dL (8.5-10.1); CREATININE 1.1 mg/dL (0.7-1.3); GFR 66.8; POTASSIUM 4.3 mmol/L (3.5-5.1)
[2019-10-07 17:10] LABS: PROTHROMBIN TIME PATIENT 13.3 SEC (11.7-14.0)
[2019-10-08 01:08] LABS: HEMOGLOBIN A1C 5.1 % (4.8-5.6)
== END | disposition home or self-care (01) ==
LOC: SURGPAT 15:20
PROVIDERS: ATTEND Orthopaedic Surgery
DX: Z01.818 Encounter for other preprocedural examination (principal); Z11.59 Encounter for screening for other viral diseases; M25.452 Effusion, left hip
CPT/HCPCS: 36415; 80048; 82040; 82306; 83036; 85025; 85610; 85730; 86140; 87426; 87641; C9803; U0003

== ENCOUNTER 2019-10-08 09:47 | Inpatient (IN) | payer MEDICARE ==
[~2019-10-08] VITALS: Ht 177.8 cm; Wt 80.8 kg
[2019-10-08] VITALS (7 sets, daily range): BP systolic 95–159; BP diastolic 59–73
[~2019-10-08 09:47] MED LIST changes: +ACETAMINOPHEN 500 MG TABLET PO ONE; +DEXAMETHASONE SOD PHOS 4 MG/ML VIAL ONE; +GABAPENTIN 300 MG CAPSULE. PO ONE; +IV RINGERS,LACTATED 1000ML 1,000 ML IV SCH; +KETOROLAC 30 MG/ML VIAL. ONE; +LIDOCAINE 2% PF 5 ML VIAL. ONE; +MELOXICAM 7.5 MG TABLET PO ONE; +MELOXICAM 7.5 MG TABLET PO SCH; +ONDANSETRON PF 4 MG/2 ML VIAL. IV PRN; +ONDANSETRON PF 4 MG/2 ML VIAL. ONE; +PROCHLORPERAZINE 10 MG/2 ML VIAL. IV PRN; +PROPOFOL 10 MG/ML (20ML) VIAL. IV ONE; +ROCURONIUM 50 MG/5 ML VIAL. ONE; +SEVOFLURANE 61 TO 120 MINUTES. IH ONE; +TRANEXAMIC ACID 1,000 MG in IV NORMAL SALINE 50ML 50 ML INJ ONE; -WARF2.5T2 PO; +fentaNYL PF VIAL 100 MCG/2 ML VIAL ONE
[2019-10-08 10:37] LABS: PROTHROMBIN TIME PATIENT 12.9 SEC (11.7-14.0)
[2019-10-08] MEDS ORDERED: KETOROLAC 30 MG/ML VIAL. ONE (11:08)
[2019-10-08] MEDS ORDERED: PHENYLEPHRINE in 0.9% NACL PF 1 MG/10 ML SYRINGE. IV ONE (11:16)
[2019-10-08] MEDS ORDERED: GLYCOPYRROLATE 1 MG/5 ML VIAL. ONE (11:32)
[2019-10-08] MEDS ORDERED: NEOSTIGMINE METHYLSULFATE 5 MG/5 ML SYRINGE. ONE (11:32)
[2019-10-08] MEDS ORDERED: VANCOMYCIN 1 GM VIAL. ONE (11:59)
[2019-10-08] MEDS ORDERED: fentaNYL PF VIAL 100 MCG/2 ML VIAL ONE ×2 (13:05→14:00)
[2019-10-08] MEDS ORDERED: HYDROmorphone 2 MG/ML VIAL ONE (13:11)
[2019-10-08] MEDS ORDERED: DEXTROSE 50% 25 GM / 50ML DISP.SYRIN. IV PRN (13:15)
[2019-10-08] MEDS ORDERED: CALCIUM CARBONATE 500 MG TAB.CHEW PO PRN (13:15)
[2019-10-08] MEDS ORDERED: fentaNYL PF VIAL 100 MCG/2 ML VIAL IVP PRN (13:15)
[2019-10-08] MEDS ORDERED: PROCHLORPERAZINE 5 MG TABLET. PO PRN (13:15)
[2019-10-08] MEDS ORDERED: oxyCODONE IR 5 MG TABLET PO PRN (13:15)
[2019-10-08] MEDS ORDERED: ZOLPIDEM 5 MG TABLET. PO PRN (13:15)
[2019-10-08] MEDS ORDERED: diphenhydrAMINE 50 MG/ML VIAL IVP PRN (13:15)
[2019-10-08] MEDS ORDERED: 0.9 % SODIUM CHLORIDE 10 ML DISP.SYRIN. IV PRN (13:15)
[2019-10-08] MEDS ORDERED: MIDAZOLAM HCL/PF 2 MG/2 ML VIAL. ONE (13:27)
[2019-10-08] MEDS ORDERED: HYDROmorphone 2 MG/ML VIAL IV PRN (13:30)
[2019-10-08] MEDS ORDERED: MORPHINE SULFATE 4 MG/ML VIAL. IV PRN (13:30)
[2019-10-08] MEDS ORDERED: MORPHINE SULFATE 2 MG/ML VIAL. IV PRN (13:30)
[2019-10-08] MEDS ORDERED: fentaNYL PF VIAL 100 MCG/2 ML VIAL IV PRN (13:30)
[2019-10-08] MEDS: fentaNYL PF VIAL 100 MCG/2 ML VIAL IV PRN ×2 (14:02→14:18)
[2019-10-08] MEDS: MORPHINE SULFATE 2 MG/ML VIAL. IVP PRN ×2 (14:54→20:41)
--- NOTE | 2019-10-08 15:12 | RAD ---
INDICATION: Reason: post op / Spl. Instructions: / History: COMPARISON: July 2019 IMPRESSION: Left hip: 3 views obtained. Severe degenerative changes of the right hip. Post left hip arthroplasty changes without periprosthetic fracture or dislocation. Electronically signed by: Nakul Mcnair MD (10/08/2019 3:08 PM) [id number]
--- NOTE | 2019-10-08 15:18 | NUR ---
received from recovery. he is alert and oriented x4. he has good sensation, motion and pulses bilateral lower extremities. rating his pain"5" and would like some pain medication. MARK dressing to left lateral hip area is clean and dry. brought his own walker and cane. tolerated apple juice without problems; will order regular diet
[2019-10-08] MEDS ORDERED: WARFARIN 7.5 MG TABLET. PO ONE (16:00)
[2019-10-08] MEDS: ONDANSETRON PF 4 MG/2 ML VIAL. IVP SCH (17:10)
[2019-10-08] MEDS: ONDANSETRON ODT 4 MG TAB.RAPDIS. PO SCH ×2 (17:14→23:12)
[2019-10-08] MEDS: FERROUS SULFATE 325 MG TABLET. PO SCH (17:25)
[2019-10-08] MEDS: oxyCODONE IR 5 MG TABLET PO PRN ×2 (17:25→23:07)
--- NOTE | 2019-10-08 18:33 | PDOC4 ---
Operative Note Operative Note Date of surgery: 10/08/2019 Preoperative diagnosis: Absence of total hip arthroplasty with antibiotic spacer left hip Postoperative diagnosis: No evidence of recurrent infection Operative procedure: Removal of antibiotic spacer and reimplantation left total hip arthroplasty Surgeon: Virginia Product Safety Lead: Garry hays assist Anesthesia: General Estimated blood loss: 150 cc, mostly existing hip joint fluid Complications: None Drains: None Intraoperative cultures, with deep tissue for aerobic anaerobic cultures, fluid for cell count, and tissue for intraoperative frozen section Operative indications: Mr. Moody had undergone previous explantation of a total hip arthroplasty for infection currently has an antibiotic spacer implanted with a 6-week course of antibiotics and decreasing inflammatory markers. He had been aspirated due to some accumulating fluid when he was still on antibiotics with a negative culture and subsequently after a two-week free antibiotic interval again with negative cultures. He continues to be asymptomatic afebrile and I had gone over with him consistent with plans that we would obtain fluid culture and intraoperative pathological evaluation if none showed any evidence of any infection we would proceed with reimplantation. We talked about the risks of potential infection instability leg length inequality nerve or blood vessel damage medical or other anesthetic complications among others and he agrees to proceed with surgical evaluation and treatment. Operative text: Patient was identified procedure verified after adequate amounts of general anesthesia were administered he was placed in the decubitus position left side up using the Stulberg hip positioner and all bony prominences were well-padded. The left hip was then prepped and draped in standard sterile fashion and after timeout was performed patient procedure identified and verified an incision was made curvilinear over the greater trochanter following the previous incision line and and penetrating the fascia a large amount of hemosiderin tinged otherwise normal-appearing joint fluid was encountered and was collected in a syringe for cell count cultures and Gram stain. There was no evidence of any recurrent infection or devitalized tissue. Joint tissue and deep tissue along the implant interface areas was sent for intraoperative frozen section after removal of the antibiotic spacer in its entirety. Acetabulum was exposed and reamed up to a size 55 with good bleeding bone throughout and after intraoperative frozen section results showed minimal neutrophils or inflammatory response with a negative Gram stain, a 56 mm cluster hole [employer] hemispherical stick-type coated shell was impacted in place in proper version with a single superiorly directed screw and a 40 mm standard polyethylene spacer was impacted. The femur was reamed and broached to a size 15 which was trial fit with a standard offset neck and restored leg length and offset with a -4 neck length trial. Trial components were removed thorough irrigation carried out with normal saline solution with pulse lavage and a size 15 Synergy porous coated standard offset stem was impacted into place and once again full range of motion jain of leg length offset and excellent stability to about 70 degrees internal rotation at 90 degrees flexion was noted with a -4 neck length trial. Trial head was removed and a 40 mm Oxinium head with a -4 mm neck length offset was impacted into place reduced and found to have equivalent stability and positioning. Hip capsule was repaired with max braid suture and reattached transosseously. I elected not to place any drain or intra-articular catheter but intra-articular mixture was injected throughout the joint capsule. Iliotibial band and fascia were closed with interrupted max braid suture and reinforced with #1 PDS strata fix suture in a running fashion. Subcutaneous closure accomplished with buried Vicryl plus suture. Skin closure subcuticular with 3-0 Monocryl strata fix suture followed by belkys dressing. Patient was returned to recovery room in stable condition having tolerated procedure well. Garry mart was present for the procedure assisted in the patient positioning prepping draping retraction closure and dressings CHERISE BACA MD Oct 08, 2019 18:33
[2019-10-08] MEDS: ATORVASTATIN CALCIUM 40 MG TABLET. PO SCH (20:39)
[2019-10-08] MEDS: IV NORMAL SALINE 1000ML BAG 1,000 ML IV SCH (22:21)
[2019-10-09 02:19] VITALS: BP 108/65
[2019-10-09] MEDS: oxyCODONE IR 5 MG TABLET PO PRN ×4 (03:13→20:55)
[2019-10-09] MEDS: ONDANSETRON PF 4 MG/2 ML VIAL. IVP SCH ×3 (06:00→12:00)
[2019-10-09] MEDS ORDERED: MAGNESIUM HYDROXIDE 2,400 MG/30 ML ORAL.SUSP. PO PRN (06:00)
[2019-10-09] MEDS: ONDANSETRON ODT 4 MG TAB.RAPDIS. PO SCH ×2 (06:00→12:00)
[2019-10-09] MEDS ORDERED: GABAPENTIN 100 MG CAPSULE. PO SCH (06:00)
[2019-10-09] MEDS: traMADol 50 MG TABLET PO SCH ×4 (06:22→22:44)
[2019-10-09 06:40] VITALS: BP 112/59
[2019-10-09 06:59] LABS: HEMATOCRIT 36.3 % (39.0-53.0); HEMOGLOBIN 12.3 g/dL (13.0-17.5)
[2019-10-09 07:37] LABS: PROTHROMBIN TIME PATIENT 15.3 SEC (11.7-14.0)
--- NOTE | 2019-10-09 07:55 | PDOC ---
PROGRESS NOTES Subjective Subjective Problems overnight: Reports that left hip feels better than it did with his initial surgery, pain controlled Objective Vital Signs Vital Signs Date Time Temp Pulse Resp B/P (MAP) Pulse Ox O2 Delivery O2 Flow Rate FiO2 10/09/19 06:40 98.3 79 20 112/59 (76) 95 Room Air 98.3 10/08/19 21:15 10.0 Physical Exam Leg lengths with a few millimeters long on the left side distal neurovascular status intact dressing clean dry intact, no drains or catheter present Labs Laboratory Tests Test 10/08/19 10:20 10/09/19 06:40 Prothrombin Time 12.9 SEC (11.7-14.0) 15.3 SEC (11.7-14.0) Prothromb Time International Ratio 1.0 (0.8-1.1) 1.3 (0.8-1.1) Activated Partial Thromboplast Time 32 SEC (24-38) Hemoglobin 12.3 g/dL (13.0-17.5) Hematocrit 36.3 % (39.0-53.0) Mean Corpuscular Hemoglobin Concent 34 g/dL (31-37) Laboratory Tests Test 10/08/19 10:20 10/09/19 06:40 Prothrombin Time 12.9 SEC (11.7-14.0) 15.3 SEC (11.7-14.0) Prothromb Time International Ratio 1.0 (0.8-1.1) 1.3 (0.8-1.1) Activated Partial Thromboplast Time 32 SEC (24-38) Hemoglobin 12.3 g/dL (13.0-17.5) Hematocrit 36.3 % (39.0-53.0) Mean Corpuscular Hemoglobin Concent 34 g/dL (31-37) Imaging Postop x-rays show about a 4 to 5 mm leg length increase on the left compared to the right with good offset and implant positioning Assessment Assessment POD#1 reimplantation left hip Plan Plan of Care Mobilize with physical therapy weightbearing as tolerated standard total hip precautions Justicifation of Admission Dx: Justifications for Admission: Justification of Admission Dx: Yes (Requiring IV medication) CHERISE BACA MD Oct 09, 2019 07:55
[2019-10-09] MEDS: PANTOPRAZOLE 40 MG TABLET.DR. PO SCH (08:15)
[2019-10-09] MEDS: MULTIVITAMIN with MINERAL TABLET. PO SCH (08:15)
[2019-10-09] MEDS: ACETAMINOPHEN 500 MG TABLET PO SCH ×3 (08:15→20:56)
[2019-10-09] MEDS: FERROUS SULFATE 325 MG TABLET. PO SCH ×2 (08:15→17:12)
[2019-10-09] MEDS: SENNOSIDES/DOCUSATE 8.6/50MG TABLET. PO SCH (08:15)
[2019-10-09] MEDS ORDERED: MELOXICAM 7.5 MG TABLET PO SCH (09:00)
[2019-10-09] MEDS ORDERED: ONDANSETRON ODT 4 MG TAB.RAPDIS. PO PRN (12:00)
[2019-10-09] MEDS ORDERED: ONDANSETRON PF 4 MG/2 ML VIAL. IVP PRN (12:00)
[2019-10-09] MEDS: IV NORMAL SALINE 1000ML BAG 1,000 ML IV SCH (13:05)
--- NOTE | 2019-10-09 14:15 | NUR ---
Pharmacy Warfarin Dosing Note S:Pharmacy consulted to assist with anticoagulation therapy started with target INR: 1.6 - 2.5 O:BRENDA MCDUFFIE is a 69 year old M with GAVIN LABS: Last INR: 1.3 Last HGB: 12.3 Last HCT: 36.3 Last PLT: Last dose of 7.5 mg given on 10/08/19 at 1725 Previous Regimen: Vitamin K given: Drug Interaction Changes: Ongoing Drug Interactions: A:INR of 1.3 is below desired range. Target range for this patient is: 1.6 - 2.5 P: Warfarin dose: 5 mg Today at 1600 Bridge Therapy: Next INR due IN AM Pharmacy anticoagulation service will continue to follow. BARRON HAND [facility], 10/09/19 [id number]
[2019-10-09] MEDS ORDERED: WARFARIN 5 MG TABLET. PO ONE (16:00)
[2019-10-09] MEDS ORDERED: BISACODYL 10 MG SUPP.RECT. PR PRN (16:00)
--- NOTE | 2019-10-09 18:06 | PATHOLOGY ---
[facility] Accession Number: [id number] . 01 Material submitted: . hip - LEFT HIP JOINT TISSUE - FS. Modifiers: left . 02 Frozen section diagnosis: . INTRAOPERATIVE CONSULTATION WITH FROZEN SECTION (Timothy Dominguez MD) . Left hip joint tissue: - Focal presence of few neutrophils - no significant acute inflammation identified. . The results are reported to Dr. Coleman in the operating room. . . GROSS DESCRIPTION The specimen is received fresh for intraoperative consultation and is designated "left hip joint tissue". This consists of three segments of red tissue ranging from 0.3 up to 0.7 cm in greatest dimension and an elongate segment of pink-elizabeth tissue measuring up to 2.3 cm in length and 0.2 cm in width. All is submitted for frozen section as FSA1. The tissue remaining from frozen section is submitted for permanent sections as A1. (JPM:mart; 10/08/2019) . . Frozen section performed at [facility], [address] [place] [address], [place] [address]. JMAmos/MBStacy . 02 Diagnosis: Segments of synovial and fibrous tissue, left hip joint tissue: - Focal mild chronic inflammation and few admixed neutrophils, with accompanying fibrosis and focal foreign body giant cell reaction and dystrophic calcification. (JPM:amber; 10/09/2019) MBR 10/09/2019 1613 Local . 02 Comment: There is no significant acute inflammation. (JPM:amber; 10/09/2019) . 02 Electronically signed: . Timothy Dominguez MD, Pathologist NPI- [id number] . 03 Gross description: . PLEASE SEE GROSS DESCRIPTION DICTATED UNDER FROZEN SECTION. /MBR 10/09/2019 0655 Local . 02 Pathologist provided ICD-10: M67.852 . 02 CPT . 013281, [id number] Specimen Comment: A courtesy copy of this report has been sent to [phone], [phone]- Specimen Comment: [id number] Specimen Comment: Report sent to / DR KAY Specimen Comment: A duplicate report has been generated due to demographic updates. Performed at: [address], [place], [place] [id number] MD Parish De Los Santos MD Phone: [phone] Performed at: [address] [id number] MD Timothy Dominguez MD Phone: [phone] Performed at: [address], [place], [place] [id number] MD Parish De Los Santos MD Phone: [phone]
[2019-10-09 18:17] VITALS: BP 103/60
[2019-10-09] MEDS: ATORVASTATIN CALCIUM 40 MG TABLET. PO SCH (20:55)
[2019-10-10] MEDS: oxyCODONE IR 5 MG TABLET PO PRN ×5 (01:46→20:59)
[2019-10-10] MEDS: ACETAMINOPHEN 500 MG TABLET PO SCH ×4 (01:48→20:59)
[2019-10-10] MEDS: FERROUS SULFATE 325 MG TABLET. PO SCH ×2 (04:08→17:16)
[2019-10-10] MEDS: PANTOPRAZOLE 40 MG TABLET.DR. PO SCH (05:38)
[2019-10-10] MEDS: traMADol 50 MG TABLET PO SCH ×3 (05:39→18:25)
[2019-10-10 05:45] VITALS: BP 124/63
[2019-10-10 07:22] LABS: HEMOGLOBIN 11.5 g/dL (13.0-17.5)
[2019-10-10 07:32] LABS: PROTHROMBIN TIME PATIENT 15.5 SEC (11.7-14.0)
[2019-10-10] MEDS: IV NORMAL SALINE 1000ML BAG 1,000 ML IV SCH (07:58)
[2019-10-10] MEDS: SENNOSIDES/DOCUSATE 8.6/50MG TABLET. PO SCH (08:00)
[2019-10-10] MEDS: MULTIVITAMIN with MINERAL TABLET. PO SCH (08:00)
--- NOTE | 2019-10-10 11:12 | NUR ---
Pharmacy Warfarin Dosing Note S:Pharmacy consulted to assist with anticoagulation therapy started 10/08/19 with target INR: 1.6 - 2.5 O:BRENDA MCDUFFIE is a 69 year old M with GAVIN LABS: Last INR: 1.3 Last HGB: 11.5 Last HCT: 34.0 Last PLT: Last dose of 5 mg given on 10/09/19 at 1712 Previous Regimen: Vitamin K given: Drug Interaction Changes: Ongoing Drug Interactions: A:INR of 1.3 is below desired range. Target range for this patient is: 1.6 - 2.5 P: Warfarin dose: 6 mg Today at 1600 Bridge Therapy: None Next INR due 10/11/19. Pharmacy anticoagulation service will continue to follow. CRISTEL BARRIOS RPH, 10/10/19 1112
--- NOTE | 2019-10-10 15:25 | NUR ---
1500 dose of acetaminophen not given, pt has reach limit in 24 period.
[2019-10-10] MEDS ORDERED: WARFARIN 3 MG TABLET. PO ONE (16:00)
[2019-10-10 18:20] VITALS: BP 121/71
[2019-10-10] MEDS: ATORVASTATIN CALCIUM 40 MG TABLET. PO SCH (20:58)
--- NOTE | 2019-10-10 22:32 | PDOC ---
PROGRESS NOTES Subjective Subjective Problems overnight: Needing stronger pain medication dose but getting up and around well with physical therapy Objective Vital Signs Vital Signs Date Time Temp Pulse Resp B/P (MAP) Pulse Ox O2 Delivery O2 Flow Rate FiO2 10/10/19 20:00 Room Air 10/10/19 18:20 98.1 68 16 121/71 (88) 97 98.1 10/08/19 21:15 10.0 Physical Exam Leg lengths equal within a few millimeters distal neurovascular status intact belkys dressing clean dry intact Labs Laboratory Tests Test 10/09/19 06:40 10/10/19 06:58 Hemoglobin 12.3 g/dL (13.0-17.5) 11.5 g/dL (13.0-17.5) Hematocrit 36.3 % (39.0-53.0) 34.0 % (39.0-53.0) Mean Corpuscular Hemoglobin Concent 34 g/dL (31-37) 34 g/dL (31-37) Prothrombin Time 15.3 SEC (11.7-14.0) 15.5 SEC (11.7-14.0) Prothromb Time International Ratio 1.3 (0.8-1.1) 1.3 (0.8-1.1) Laboratory Tests Test 10/10/19 06:58 Hemoglobin 11.5 g/dL (13.0-17.5) Hematocrit 34.0 % (39.0-53.0) Mean Corpuscular Hemoglobin Concent 34 g/dL (31-37) Prothrombin Time 15.5 SEC (11.7-14.0) Prothromb Time International Ratio 1.3 (0.8-1.1) Assessment Assessment POD#2 reimplantation left total hip Plan Plan of Care Changed p.o. medicines to oxycodone 10 mg Plan Home with outpatient physical therapy tomorrow Continue Coumadin anticoagulation Justicifation of Admission Dx: Justifications for Admission: Justification of Admission Dx: Yes (Requiring IV medication) Comments: Needed adjustment of pain medication to wean from IV CHERISE BACA MD Oct 10, 2019 22:32
[2019-10-11] MEDS: ACETAMINOPHEN 500 MG TABLET PO SCH ×2 (02:30→07:49)
[2019-10-11] MEDS: oxyCODONE IR 5 MG TABLET PO PRN ×2 (02:31→07:48)
[2019-10-11 06:00] VITALS: BP 114/62
[2019-10-11] MEDS: traMADol 50 MG TABLET PO SCH ×2 (06:00)
[2019-10-11] MEDS: PANTOPRAZOLE 40 MG TABLET.DR. PO SCH (06:00)
[2019-10-11] MEDS ORDERED: WARF2.5T2 PO (06:39)
--- NOTE | 2019-10-11 06:42 | DISCH ---
DISCHARGE INSTRUCTIONS Condition on Discharge Condition on Discharge: Stable Activity After Discharge Activity Instructions for Disc: Activity as tolerated Bathing Instructions: Shower-keep dressing dry (May shower without covering as long as belkys dressing is intact and sealed) Lifting Instructions after Dis: No heavy lifting, No pulling or pushing Exercise Instruction after Dis: Exercise per therapy (Maintain standard total hip precautions avoid hip flexion past 90 degrees or internal rotation), Progress as tolerated Driving Instructions after Dis: Do not drive Weight Bearing Status after Di: As tolerated Diet after Discharge Diet after Discharge: Regular Wound Incision Care Wound/Incision Care: Ice to area for comfort, Change dressing (Maintain belkys dressing call if saturated, may remove suction in 1 week when battery quits and tape over outlet keeping dressing intact) Community/Resources/Services Services at Discharge: Outpatient Therapy Contacting the after DC Call your doctor for: Concerns you may have Follow-Up Follow up with: Dr. Coleman 2 weeks postop CHERISE COLEMAN MD Oct 11, 2019 06:42
[2019-10-11 06:47] LABS: HEMATOCRIT 33.7 % (39.0-53.0); HEMOGLOBIN 11.7 g/dL (13.0-17.5)
[2019-10-11] MEDS: FERROUS SULFATE 325 MG TABLET. PO SCH (07:47)
[2019-10-11] MEDS: SENNOSIDES/DOCUSATE 8.6/50MG TABLET. PO SCH (07:47)
[2019-10-11] MEDS: MULTIVITAMIN with MINERAL TABLET. PO SCH (07:48)
--- NOTE | 2019-10-11 10:07 | NUR ---
Pharmacy Warfarin Dosing Note S:Pharmacy consulted to assist with anticoagulation therapy started 10/08/19 with target INR: 1.6 - 2.5 O:BRENDA MCDUFFIE is a 69 year old M with GAVIN LABS: Last INR: 1.3 Last HGB: 11.7 Last HCT: 33.7 Last PLT: Last dose of 6 mg given on 10/10/19 at 1601 Previous Regimen: Vitamin K given: Drug Interaction Changes: Ongoing Drug Interactions: A:INR of 1.3 is below desired range. Target range for this patient is: 1.6 - 2.5 P: Warfarin dose: 7.5 mg Today at 1100 Bridge Therapy: None Next INR due on Monday via [employer]. Pharmacy anticoagulation service will continue to follow. Brady Cortes RPH, 10/11/19 1007
--- NOTE | 2019-10-11 10:50 | NUR ---
Discharge instructions given with prescription. Answered questions and concerns. Verbalized understanding. Pt waiting of his ride.
[2019-10-11] MEDS ORDERED: WARFARIN 7.5 MG TABLET. PO ONE (11:00)
--- NOTE | 2019-10-11 11:00 | NUR ---
No c/o at this time. Rating pain between 1-2 on pain scale. Waiting on spouse for his ride.
--- NOTE | 2019-10-11 11:10 | NUR ---
Pt discharged. Escorted out by w/c.
--- NOTE | 2019-10-13 10:05 | DS ---
DATE OF DISCHARGE: 10/11/2019 ORTHOPEDIC DISCHARGE SUMMARY PRINCIPAL DIAGNOSIS: Presence of antibiotic spacer, left hip PROCEDURE: Removal of antibiotic spacer and reimplantation of left total hip arthroplasty. DISPOSITION: Home with home health. DISPOSITION MEDICATIONS: Oxycodone 10 mg p.o. every 4-6 hours p.r.n. pain, Coumadin as directed by anticoagulation clinic. Resume home medications. DISCHARGE INSTRUCTIONS: Follow up with Dr. Coleman in 2 weeks. Maintain MARK dressing, call if saturated, maintain standard total hip precautions, weightbearing as tolerated, avoiding flexion past 90 degrees or internal rotation. BRIEF DESCRIPTION OF HOSPITAL COURSE: The patient underwent removal of antibiotic spacer and reimplantation of his total hip arthroplasty. Postoperatively, he was initially requiring IV pain medications, transitioned to adequate oral medication and was taken through physical therapy for ambulation and transfers and was discharged to home in stable condition with home health followup. CHERISE COLEMAN MD DR: PEGGY/abdirizak JOB#: [id number] / [id number]
== END 2019-10-11 11:10 | disposition home health service (06) | DRG 468 ==
LOC: OPSVCIP 09:47 → 4 SOUTHEST 14:23
PROVIDERS: ADMIT Orthopaedic Surgery; ATTEND Orthopaedic Surgery
PROC: 0SRB0JZ Replacement of Left Hip Joint with Synthetic Substitute, Open Approach (ICD-10-PCS; 2019-10-08)
PROC: 0SPB08Z Removal of Spacer from Left Hip Joint, Open Approach (ICD-10-PCS; principal; 2019-10-08 11:30)
DX: M00.9 Pyogenic arthritis, unspecified (principal); Z96.649 Presence of unspecified artificial hip joint; Z79.899 Other long term (current) drug therapy; E78.5 Hyperlipidemia, unspecified
CPT/HCPCS: 36415; 73502; 80048; 82040; 82306; 83036; 85014; 85018; 85025; 85610; 85730; 86140; 86850; 86900; 86901; 87071; 87075; 87426; 87641; 88305; 88331; 99406; A7015; C1713; J0171; J0690; J1100; J1885; J2270; J2370; J2405; J2704; J2710; J2795; J3010; J3370; J3490; J7030; J7120; 97116-GP; 97150-GP; 97530-GP; 97535-GO; C9803-CS; G0378; U0003-CS

== ENCOUNTER → 2020-03-03 | Outpatient (CLI) | payer MEDICARE ==
[~2020-03-03] MED LIST changes: -ACETAMINOPHEN 500 MG TABLET PO ONE; -DEXAMETHASONE SOD PHOS 4 MG/ML VIAL ONE; -GABAPENTIN 300 MG CAPSULE. PO ONE; -IV RINGERS,LACTATED 1000ML 1,000 ML IV SCH; -KETOROLAC 30 MG/ML VIAL. ONE; -LIDOCAINE 2% PF 5 ML VIAL. ONE; -MELOXICAM 7.5 MG TABLET PO ONE; -MELOXICAM 7.5 MG TABLET PO SCH; -ONDANSETRON PF 4 MG/2 ML VIAL. IV PRN; -ONDANSETRON PF 4 MG/2 ML VIAL. ONE; -PROCHLORPERAZINE 10 MG/2 ML VIAL. IV PRN; -PROPOFOL 10 MG/ML (20ML) VIAL. IV ONE; -ROCURONIUM 50 MG/5 ML VIAL. ONE; -SEVOFLURANE 61 TO 120 MINUTES. IH ONE; -TRANEXAMIC ACID 1,000 MG in IV NORMAL SALINE 50ML 50 ML INJ ONE; +WARF2.5T2 PO; -fentaNYL PF VIAL 100 MCG/2 ML VIAL ONE
[2020-03-03 13:28] LABS: BASO # 0.2 x10^3/uL (0.0-0.2); BASO % 1 % (0-3); EOS # 0.6 x10^3/uL (0.0-0.7); EOS % 4 % (0-3); HEMATOCRIT 47.4 % (39.0-53.0); HEMOGLOBIN 16.2 g/dL (13.0-17.5); LYMPH # 1.7 x10^3/uL (1.0-4.8); LYMPH % 13 % (24-48); MEAN CORPUSCULAR HEMOGLOBIN 34 pg (25-35); MEAN CORPUSCULAR HGB CONC 34 g/dL (31-37); MEAN CORPUSCULAR VOLUME 99 fL (79-100); MONO # 1.1 x10^3/uL (0.0-1.1); MONO % 8 % (0-9); NEUT # 9.7 x10^3/uL (1.8-7.7); NEUT % 73 % (31-73); PLATELET COUNT 265 x10^3/uL (140-400); RED BLOOD COUNT 4.81 x10^6/uL (4.30-5.70); RED CELL DISTRIBUTION WIDTH 15.6 % (11.5-14.5); WHITE BLOOD COUNT 13.2 x10^3/uL (4.0-11.0)
[2020-03-03 13:38] LABS: ALBUMIN 3.8 g/dL (3.4-5.0); CALCIUM 9.4 mg/dL (8.5-10.1); GFR 74.3
[2020-03-03 13:44] LABS: PROTHROMBIN TIME PATIENT 12.6 SEC (11.7-14.0)
--- NOTE | 2020-03-03 13:55 | EKG ---
[facility] [address] [place] [address] Test Date: 2020-03-03 Test Time: 13:36:54 Pat Name: BRENDA MCDUFFIE Department: Room: Gender: M Crating And Moving Estimator: RAVI : 1950 Requested By: CHERISE BACA Order Number: [id number] Reading MD: Osmin Mejia Measurements Intervals Rhame Rate: 88 P: 35 ND: 144 QRS: 24 QRSD: 78 T: 47 QT: 346 QTc: 422 Interpretive Statements MILD SINUS ARRHYTHMIA OTHERWISE NORMAL ECG Electronically Signed On 03-04-2020 11:43:10 DRIVER'S LICENSE REVIEWING OFFICER by Osmin Mejia
--- NOTE | 2020-03-03 14:02 | RAD ---
EXAM: CHEST 2 VIEWS. HISTORY: Preoperative risk factors, smoking. COMPARISON: 03/18/2019. FINDINGS: Frontal and lateral views of the chest are obtained. There are no confluent infiltrates. There is no pneumothorax or pleural effusion. The heart is not en larged. IMPRESSION: 1. No confluent infiltrates. Electronically signed by: Sonia Nguyen MD (03/03/2020 1:59 PM) [facility]
[2020-03-04 00:09] LABS: HEMOGLOBIN A1C 5.5 % (4.8-5.6)
== END ==
LOC: SURGPAT 12:55
PROVIDERS: ATTEND Orthopaedic Surgery
DX: Z01.812 Encounter for preprocedural laboratory examination (principal); I49.8 Other specified cardiac arrhythmias
CPT/HCPCS: 36415; 71046; 80048; 82040; 82306; 83036; 85025; 85610; 85730; 86140; 87641; 93005

== ENCOUNTER → 2020-03-19 | Outpatient (CLI) | payer MEDICARE ==
[~2020-03-19] MED LIST changes: +OXYC1TAB19 PO; +WARF-31 PO
== END ==
LOC: LAB 10:02
PROVIDERS: ATTEND Orthopaedic Surgery
DX: Z01.812 Encounter for preprocedural laboratory examination (principal); Z20.828 Contact with and (suspected) exposure to other viral communicable diseases
CPT/HCPCS: U0003

== ENCOUNTER 2020-03-24 09:14 | Observation (INO) | payer MEDICARE ==
[~2020-03-24] VITALS: Ht 177.8 cm; Wt 81.2 kg
[~2020-03-24 09:14] MED LIST changes: +ACETAMINOPHEN 500 MG TABLET PO PRN; +GABAPENTIN 300 MG CAPSULE. PO PRN; +IV RINGERS,LACTATED 1000ML 1,000 ML IV SCH; +MELOXICAM 7.5 MG TABLET PO PRN; +MORPHINE SULFATE 5 MG, KETOROLAC 30MG VIAL 30 MG, ROPIVacaine 0.5% PF 60 ML, EPINEPHrin... INT ART ONE; +ONDANSETRON PF 4 MG/2 ML VIAL. IV PRN; -OXYC1TAB19 PO; +TRANEXAMIC ACID 1,000 MG in IV NS 50ML -- 1ST BAG INJ ONE; +TRANEXAMIC ACID 1,000 MG in IV NS 50ML -- 2ND BAG INJ ONE; -WARF-31 PO; +fentaNYL PF VIAL 100 MCG/2 ML VIAL IV PRN
[2020-03-24] MEDS ORDERED: VANCOMYCIN 1 GM VIAL. ONE (10:49)
[2020-03-24] MEDS ORDERED: ROCURONIUM 50 MG/5 ML VIAL. ONE (11:04)
--- NOTE | 2020-03-24 11:07 | HP ---
ADMIT DATE: 03/24/2020 PREOPERATIVE HISTORY AND PHYSICAL CHIEF COMPLAINT: Right hip pain. HISTORY OF PRESENT ILLNESS: The patient is well known to me from a left total hip arthroplasty, which is otherwise doing well at this point, but he does have some leg length discrepancy and using a shoe lift on the right side, which mitigates this problem. He notices it more obviously when walking on bare stocking feet, right hip is becoming increasingly more painful, feels like the left hip did before surgery and more limiting his activities of daily living and really not responsive to activity modification, use of a cane or other nonoperative treatments. He has quit smoking since his last operation. PAST MEDICAL HISTORY: Significant for prostate cancer, esophagitis, hyperlipidemia, psoriasis and diverticulosis. SURGICAL HISTORY: Hernia repair, prostatectomy, left total hip arthroplasty and groin cyst surgery. FAMILY HISTORY: Mother from TB. Father at 88 years old from a blood clot. One uncle with an [place] in his 50s and other family members with health problems were older. SOCIAL HISTORY: Significant for previous smoker, quit; occasional social alcohol use; denies drug use and is retired. MEDICATIONS: List is reviewed including Lipitor, Acitretin, vitamin A, Tylenol, and pantoprazole. ALLERGIES: He has no known drug allergies. REVIEW OF SYSTEMS: Denies any recent chest pain, shortness of breath, febrile illness, focal weakness, numbness, tingling or other constitutional symptoms. PHYSICAL EXAMINATION: VITAL SIGNS: Per admission sheet. HEENT: Atraumatic, normocephalic. HEART: Regular rate and rhythm. LUNGS: Clear to auscultation bilaterally. EXTREMITIES: Benign. Exam of the right hip reveals pain at his already decreased range of motion at its extremes. He has about a half inch leg length discrepancy with the left leg longer. Incision is well healed on the left hip. Negative straight leg raise bilaterally. Normal alignment, stability, bilateral knees and ankles. IMAGING: X-rays show good positioning of the total hip arthroplasty on the left, severe [id number] degenerative change on the right hip with a leg length discrepancy, left leg longer. IMPRESSION: 1. Primary osteoarthritis of right hip. 2. History of left total hip arthroplasty and leg length discrepancy. TREATMENT PLAN: I had gone over with him the risks, benefits, postoperative course of the procedure, increased risk of infection, particularly with smoking, which he says he will continue to shun, talked also about the possibility of instability, nerve or blood vessel damage, medical or other anesthetic complications among others. He wished to proceed with surgical evaluation and treatment, which will include [facility] observation to follow. CHERISE BACA MD DR: PEGGY/abdirizak JOB#: [id number] / [id number]
[2020-03-24 11:31] LABS: PROTHROMBIN TIME PATIENT 13.2 SEC (11.7-14.0)
[2020-03-24] MEDS ORDERED: DEXAMETHASONE SOD PHOS 4 MG/ML VIAL ONE (11:42)
[2020-03-24] MEDS ORDERED: fentaNYL PF VIAL 250 MCG/5 ML VIAL ONE (11:42)
[2020-03-24] MEDS ORDERED: LIDOCAINE 2% PF 5 ML VIAL. ONE (11:42)
[2020-03-24] MEDS ORDERED: ONDANSETRON PF 4 MG/2 ML VIAL. ONE (11:42)
[2020-03-24] MEDS ORDERED: PROPOFOL 10 MG/ML (20ML) VIAL. IV ONE (11:42)
[2020-03-24] MEDS ORDERED: PHENYLEPHRINE in 0.9% NACL PF 1 MG/10 ML SYRINGE. IV ONE (12:17)
[2020-03-24] MEDS ORDERED: 0.9 % SODIUM CHLORIDE 10 ML DISP.SYRIN. IV PRN (13:30)
[2020-03-24] MEDS ORDERED: IV NORMAL SALINE 1000ML BAG 1,000 ML IV SCH (13:30)
[2020-03-24] MEDS ORDERED: DEXTROSE 50% 25 GM / 50ML DISP.SYRIN. IV PRN (13:30)
[2020-03-24] MEDS ORDERED: MORPHINE SULFATE 2 MG/ML VIAL. IVP PRN (13:30)
[2020-03-24] MEDS ORDERED: fentaNYL PF VIAL 100 MCG/2 ML VIAL IVP PRN (13:30)
[2020-03-24] MEDS ORDERED: CALCIUM CARBONATE 500 MG TAB.CHEW PO PRN (13:30)
[2020-03-24] MEDS ORDERED: ZOLPIDEM 5 MG TABLET. PO PRN (13:30)
[2020-03-24] MEDS ORDERED: diphenhydrAMINE 50 MG/ML VIAL IVP PRN (13:30)
[2020-03-24] MEDS ORDERED: PROCHLORPERAZINE 5 MG TABLET. PO PRN (13:30)
[2020-03-24] MEDS: MORPHINE SULFATE 2 MG/ML VIAL. IV PRN ×2 (13:48→14:00)
[2020-03-24] MEDS: HYDROmorphone 2 MG/ML VIAL IV PRN ×3 (14:02→14:55)
[2020-03-24] MEDS: PROCHLORPERAZINE 10 MG/2 ML VIAL. IV PRN ×2 (14:07→14:16)
[2020-03-24] MEDS ORDERED: KETOROLAC 30 MG/ML VIAL. IVP ONE (14:30)
[2020-03-24] MEDS ORDERED: KETOROLAC 30 MG/ML VIAL. ONE (14:40)
[2020-03-24] MEDS ORDERED: HYDROmorphone 2 MG/ML VIAL IVP PRN (15:00)
[2020-03-24 15:45] VITALS: BP 107/60
--- NOTE | 2020-03-24 15:57 | PDOC4 ---
Operative Note Operative Note Date of surgery: 03/24/2020 Preoperative diagnosis: Degenerative joint disease right hip Postoperative diagnosis: Same Operative procedure: Right total hip arthroplasty with anterior approach Surgeon [place] Legal Director: Garry mart Anesthesia: General Estimated blood loss: 150 cc Complications: None Drains: None Operative indications: Please see my orthopedic clinic note and dictated history and physical for detailed operative indications and note that we covered risks benefits postoperative course of the procedure. All her questions were answered and he wishes to proceed with surgical evaluation and treatment having given informed consent Operative text: Patient was identified procedure verified patient placed in the supine position on the [place] fracture table after adequate amounts of general anesthesia were administered. All bony prominences were well-padded and right hip was prepped and draped in the standard sterile fashion. After timeout was performed patient procedure identified and verified an incision was made just distal to the anterior superior iliac spine running along the tensor fascia wilton for a distance of about 4 inches. Fascia was incised tensor fascia wilton was taken laterally and circumflex vessels were located and coagulated and the anterior capsule was exposed with the rectus femoris gently retracted medially along with the underlying fascia that was dissected free. Capsule was split in a T-shaped incision and superior aspect of the capsule was excised and further superior release was carried out with the hip in external rotation. Hip was returned to 40 degrees external rotation and a napkin ring cut was made with an Avenir Twin broach for reference napkin ring was removed and femoral head was removed and sized. Reaming was carried out from a size 47 to a size 53 with a size 54 cluster hole cup placed in proper version and alignment under fluoroscopic guidance and achieved a very solid scratch fit and therefore no screw fixation was applied. A 36 mm vitamin E nonelevated liner was impacted into place. Femur was brought into maximum external rotation extension and adduction and release was carried out at the 11 o'clock position to free up the femur and retractors were placed medially and above the greater trochanter for maximum femoral exposure box osteotome was used along with the rattail rasp and successive size broaching up to a size 4 which provided excellent stability and fit within the canal. Calcar reaming was carried out and trial fitting with a +7 36 mm head with a standard offset neck to reproduce leg length and offset appropriately. This was verified under fluoroscopic guidance. Trial components were removed and a size 4 standard offset collared Avenir stem was impacted into place with a + 7 ceramic 36 mm head. Excellent stability and range of motion were noted and leg length reproduced according to measurements from the contralateral side. Thorough irrigation carried out with dilute Betadine solution and then washed further with normal saline solution and pulse lavage. Intra-articular mixture was injected subperiosteally throughout the joint capsule and subcutaneous areas. Fascia was closed with #1 PDS strata fix suture in a running fashion subcutaneous closure with buried Vicryl skin closure with subcuticular Monocryl and a belkys dressing was applied. Patient was returned to recovery room in stable condition having tolerated the procedure well. Garry mart was present for the procedure and assisted in the patient positioning prepping draping retraction closure and dressings CHERISE BACA MD Mar 24, 2020 15:57
[2020-03-24] MEDS ORDERED: WARFARIN 7.5 MG TABLET. PO ONE (16:00)
[2020-03-24 16:15] VITALS: BP 114/60
[2020-03-24 16:45] VITALS: BP 123/71
[2020-03-24 17:15] VITALS: BP 120/65
[2020-03-24] MEDS: ONDANSETRON ODT 4 MG TAB.RAPDIS. PO SCH (17:16)
[2020-03-24] MEDS: SENNOSIDES/DOCUSATE 8.6/50MG TABLET. PO SCH (17:16)
[2020-03-24] MEDS: oxyCODONE IR 5 MG TABLET PO PRN ×2 (17:17→21:30)
[2020-03-24] MEDS: FERROUS SULFATE 325 MG TABLET. PO SCH (17:17)
[2020-03-24] MEDS: ONDANSETRON PF 4 MG/2 ML VIAL. IVP SCH (17:22)
--- NOTE | 2020-03-24 17:53 | NUR ---
received from recovery has a mask (O2) on at 4l. room o2 sat was 88% converted to o2 per nasal cannula. He has motion, sensation an pulses bilateral lower extremities. left strength is weaker than the right. He is rating his pain 2-3. able to answer questions. called Cindi and told her the room info. oriented to call light, routine.
[2020-03-24 19:00] VITALS: BP 111/65
[2020-03-24] MEDS ORDERED: ATORVASTATIN CALCIUM 40 MG TABLET. PO SCH (21:00)
[2020-03-24 22:50] VITALS: BP 98/58
[2020-03-25 02:32] VITALS: BP 108/54
[2020-03-25] MEDS: oxyCODONE IR 5 MG TABLET PO PRN ×3 (04:29→14:00)
[2020-03-25] MEDS ORDERED: MAGNESIUM HYDROXIDE 2,400 MG/30 ML ORAL.SUSP. PO PRN (06:00)
[2020-03-25] MEDS: traMADol 50 MG TABLET PO SCH ×2 (06:16→11:49)
[2020-03-25] MEDS: GABAPENTIN 100 MG CAPSULE. PO SCH ×2 (06:16→14:00)
[2020-03-25] MEDS: ONDANSETRON PF 4 MG/2 ML VIAL. IVP SCH ×3 (06:17→11:48)
[2020-03-25] MEDS: ONDANSETRON ODT 4 MG TAB.RAPDIS. PO SCH ×3 (06:17→11:49)
[2020-03-25 06:39] VITALS: BP 109/56
[2020-03-25] MEDS ORDERED: PANTOPRAZOLE 40 MG TABLET.DR. PO SCH (07:30)
[2020-03-25] MEDS: FERROUS SULFATE 325 MG TABLET. PO SCH (07:49)
[2020-03-25] MEDS: SENNOSIDES/DOCUSATE 8.6/50MG TABLET. PO SCH (07:49)
[2020-03-25] MEDS ORDERED: MELOXICAM 7.5 MG TABLET PO SCH (09:00)
[2020-03-25] MEDS ORDERED: MULTIVITAMIN with MINERAL TABLET. PO SCH (09:00)
[2020-03-25] MEDS ORDERED: ACETAMINOPHEN 500 MG TABLET PO SCH (09:00)
[2020-03-25 09:27] LABS: HEMATOCRIT 38.7 % (39.0-53.0)
--- NOTE | 2020-03-25 09:51 | NUR ---
Pharmacy Warfarin Dosing Note S:Pharmacy consulted to assist with anticoagulation therapy started 03/24/20 with target INR: 1.6 - 2.5 O:BRENDA MCDUFFIE is a 70 year old M with [facility] LABS: Last INR: 1.2 Last HGB: Last HCT: Last PLT: Last dose of 7.5 mg given on 03/24/20 at 1716 Previous Regimen: Vitamin K given: Drug Interaction Changes: Ongoing Drug Interactions: A:INR of 1.2 is below desired range. Target range for this patient is: 1.6 - 2.5 P: Warfarin dose: 5 mg Today at 1600 Bridge Therapy: Next INR due IN AM Pharmacy anticoagulation service will continue to follow. MARY GARCIA [facility], 03/25/20 0995
--- NOTE | 2020-03-25 11:49 | NUR ---
Pharmacy Warfarin Dosing Note S:Pharmacy consulted to assist with anticoagulation therapy started 03/24/20 with target INR: 1.6 - 2.5 O:BRENDA MCDUFFIE is a 70 year old M with [facility] LABS: Last INR: 1.2 Last HGB: Last HCT: Last PLT: Last dose of 7.5 mg given on 03/24/20 at 1716 Previous Regimen: Vitamin K given: Drug Interaction Changes: Ongoing Drug Interactions: A:INR of 1.2 is below desired range. Target range for this patient is: 1.6 - 2.5 P: Warfarin dose: 5 mg Prior to Discharge AND DC WITH 5MG #42 TABLETS Bridge Therapy: NONE Next INR due 03/30, 04/06, 04/13, 04/20, 04/27 Pharmacy anticoagulation service will continue to follow. MARY GARCIA [facility], 03/25/20 [id number]
[2020-03-25] MEDS ORDERED: ONDANSETRON ODT 4 MG TAB.RAPDIS. PO PRN (12:00)
[2020-03-25] MEDS ORDERED: ONDANSETRON PF 4 MG/2 ML VIAL. IVP PRN (12:00)
[2020-03-25] MEDS ORDERED: OXYC1TAB19 PO (12:43)
--- NOTE | 2020-03-25 12:46 | DISCH ---
DISCHARGE INSTRUCTIONS Condition on Discharge Condition on Discharge: Stable Activity After Discharge Activity Instructions for Disc: Activity as tolerated Lifting Instructions after Dis: No heavy lifting, No pulling or pushing Exercise Instruction after Dis: Exercise per therapy, Progress as tolerated Driving Instructions after Dis: Do not drive Weight Bearing Status after Di: As tolerated Diet after Discharge Diet after Discharge: Regular Wound Incision Care Wound/Incision Care: Ice to area for comfort, Do not change dressing (Call if dressing is saturated red or draining) Contacting the DRAster after DC Call your doctor for: Concerns you may have Follow-Up Follow up with: Dr. Coleman 2 weeks postop Warfarin Follow-Up Warfarin Follow UP: Warfarin dosage and testing per [facility] CHERISE COLEMAN MD Mar 25, 2020 12:46
--- NOTE | 2020-03-25 12:54 | SNU/HH DC ---
DISCHARGE WITH HOME HEALTH DISCHARGE INFORMATION: Condition on Discharge: Stable CODE STATUS: Code Status: Full HOME HEALTH: Face to Face: I certify this patient is under my care and that I, or a nurse practitioner or physician's assistant therapy aide working with me, had a face to face encounter that meets the physician face to face encounter requirements with this patient on [03/25/20]. Medical Complications: S/P Joint Replacement RN For Eval/Treatment: Yes Pt Meets Homebound Status: Limited distance walking POST DISCHARGE ORDERS: Activity Instructions for Disc: Activity as tolerated Weight Bearing Status after Di: As tolerated DIET AFTER DISCHARGE: Regular Wound/Incision Care: Ice to area for comfort, Do not change dressing (Call if dressing is saturated red or draining) FOLLOW-UP: Follow up with: Dr. Coleman 2 weeks postop DC TO SNF LABS: As directed by infectious disease Warfarin Follow UP: Warfarin dosage and testing per [place] [facility] Additional Instructions: Home health for weekly PT/INR testing as directed TREATMENT/EQUIPMENT ORDERS: Adaptive Equipment Issued: Cane CERTIFICATION STATEMENT: Certification Statement: Certification Statement: Based on the above finding, I certify that this patient is confined to the home and needs intermittent long-term care, physical therapy and/or speech therapy, or continues to need occupational therapy.~ This patient is under my care, and I have initiated the establishment of the plan of care.~ This patient will be followed by myself or a community physician who will periodically review the plan of care. Home Meds Reported Medications Acitretin (ACITRETIN) 25 Mg Capsule, 25 MG PO DAILY for RASH, CAP 03/03/20 Atorvastatin Calcium (LIPITOR) 40 Mg Tablet, 40 MG PO HS for FOR CHOLESTEROL, #30 TAB 0 Refills 10/07/19 Pantoprazole Sodium (PROTONIX ) 40 Mg Tablet., 40 MG PO DAILYAC for GERD, TAB 03/18/19 CHERISE COLEMAN MD Mar 25, 2020 12:54
[2020-03-25] MEDS ORDERED: WARF-31 PO (13:44)
[2020-03-25] MEDS ORDERED: WARFARIN 5 MG TABLET. PO ONE (14:00)
--- NOTE | 2020-03-25 15:06 | NUR ---
Patient left around 1440 with his friend. Discharge education completed by this nurse, therapy, and the doctor prior to discharge. Pharmacy also came up to talk to the patient and give him his coumadin prior to dismissal. Dressing to right hip changed and an Aquacel dressing was placed. No signs of dehiscence or infection noted at this time. Pain medication given to patient prior to discharge. Script for oxycodone and tramadol given to the patient to take to his pharmacy. No concerns noted at discharge.
[2020-03-25] MEDS ORDERED: BISACODYL 10 MG SUPP.RECT. PR PRN (16:00)
--- NOTE | 2020-03-26 07:04 | DS ---
DATE OF DISCHARGE: 03/25/2020 ORTHOPEDIC DISCHARGE SUMMARY PRINCIPAL DIAGNOSIS: Degenerative joint disease, right hip. PROCEDURE: Right total hip arthroplasty. DISPOSITION: Home with home health for warfarin level testing, PT/INR weekly. ACTIVITY: Weightbearing as tolerated. Avoid extremes of range of motion, right hip. MEDICATIONS: Include warfarin as directed by anticoagulation clinic, oxycodone 10 mg 1 p.o. q.6 hours p.r.n. pain., resume preoperative medications. BRIEF DESCRIPTION OF HOSPITAL COURSE: The patient underwent uncomplicated right total hip arthroplasty. His leg lengths were equal postoperatively. He was getting around excellent. He did well in terms of ambulation and transfers with physical therapy; and upon our discussion, really does not need formal physical therapy at home because of his excellent progress; however, his warfarin testing is going to be accomplished with home health as his had a recent seizure; and therefore, neither of them can drive for the very near term. He remained medically stable throughout the stay and was discharged to home in stable condition. CHERISE BAAC MD DR: PEGGY/[email or web address] JOB#: [id number] / [id number]
--- NOTE | 2020-03-27 18:48 | PATHOLOGY ---
[facility] Accession Number: [id number] . 01 Material submitted: . femur - FEMORAL HEAD RIGHT . 01 Clinical history: . PRIMARY OSTEOARTHRITIS . 02 Diagnosis: Segments (2) of femoral head, right total hip arthroplasty: - Advanced degenerative arthritis, with focal subarticular fibrosis and cystic degeneration. (JPM:amber; 03/27/2020) MBR 03/27/2020 1120 Local . 02 Electronically signed: . Timothy Dominguez MD, Pathologist NPI- [id number] . 01 Gross description: . The specimen is received in formalin, labeled "Isaias Moody, femoral head" and consists of a femoral head received in 2 segments measuring 5.3 x 5.3 x 4.8 cm. The articular surface is smooth elizabeth to roughened/granular brown with focal eburnation. Peripheral osteophytes are present. Sectioning reveals a soft cystic/hemorrhagic area measuring 1.5 cm. Hazardous Substances Scientist sections are submitted in A1-A2 following decalcification. (SDY; 03/25/2020) SYU/SYU 03/25/2020 1642 Local . 02 Pathologist provided ICD-10: M16.11 . 02 CPT . 294994, [id number] Specimen Comment: A courtesy copy of this report has been sent to [phone] Specimen Comment: Report sent to Performed at: 01 [facility] [address], [place] [id number] MD Preet Quintero MD Phone: [phone] Performed at: 02 [facility] [address] [place], [place] [id number] MD Timothy Dominguez MD Phone: [phone]
== END 2020-03-25 14:45 | disposition home health service (06) ==
LOC: OPSVCIP 09:14 → 4 SOUTHEST 16:00
PROVIDERS: ADMIT Orthopaedic Surgery; ATTEND Orthopaedic Surgery
DX: M16.11 Unilateral primary osteoarthritis, right hip (principal); M21.70 Unequal limb length (acquired), unspecified site; E78.5 Hyperlipidemia, unspecified; L40.9 Psoriasis, unspecified; K57.90 Diverticulosis of intestine, part unspecified, without perforation or abscess without bleeding; Z85.46 Personal history of malignant neoplasm of prostate; Z96.643 Presence of artificial hip joint, bilateral; Z87.891 Personal history of nicotine dependence; Z90.49 Acquired absence of other specified parts of digestive tract; Z79.899 Other long term (current) drug therapy
CPT/HCPCS: 27130; 36415; 76000; 85014; 85018; 85610; 85730; 86850; 86900; 86901; 96365; 96366; 97116; 97150; 97162; 97165; 97530; 97535; 99406; C1776; C1887; G0378; G0379; J0171; J0690; J0780; J1100; J1170; J1885; J2270; J2370; J2405; J2704; J2795; J3010; J3370; J3490; J7030; J7120; 88304; 88311

== ENCOUNTER → 2020-12-17 | Outpatient (CLI) | payer MEDICARE ==
[~2020-12-17] MED LIST changes: -ACETAMINOPHEN 500 MG TABLET PO PRN; -GABAPENTIN 300 MG CAPSULE. PO PRN; -IV RINGERS,LACTATED 1000ML 1,000 ML IV SCH; -MELOXICAM 7.5 MG TABLET PO PRN; -MORPHINE SULFATE 5 MG, KETOROLAC 30MG VIAL 30 MG, ROPIVacaine 0.5% PF 60 ML, EPINEPHrin... INT ART ONE; -ONDANSETRON PF 4 MG/2 ML VIAL. IV PRN; +OXYC1TAB19 PO; -TRANEXAMIC ACID 1,000 MG in IV NS 50ML -- 1ST BAG INJ ONE; -TRANEXAMIC ACID 1,000 MG in IV NS 50ML -- 2ND BAG INJ ONE; +WARF-31 PO; -fentaNYL PF VIAL 100 MCG/2 ML VIAL IV PRN
--- NOTE | 2020-12-18 08:33 | KCIC ---
EXAM: CT CHEST WITHOUT CONTRAST (LDCT LUNG CANCER SCREENING). HISTORY: Risk factors for pulmonary malignancy. Smoker for 40 years. TECHNIQUE: CT of the chest was performed without intravenous contrast using a low-dose lung screening protocol. Findings analysis is based on ACR Lung-RADS v1.1. *One or more of the following individualized dose reduction techniques were utilized for this examina tion: 1. Automated exposure control. 2. Adjustment of the mA and/or kV according to patient size. 3. Use of iterative reconstruction technique. COMPARISON: None available. FINDINGS: Nodules: No clinically suspicious nodules. Other findings: Images of the upper abdomen reveal no acute abnormality. Bone windows reveal no suspi cious lesions. There are no pathologically enlarged mediastinal or axillary lymph nodes. There is no pleural or stacy cardial effusion. The heart is not enlarged. No pulmonary parenchymal process is identified. IMPRESSION/RECOMMENDATION: 1. ACR Lung-RADS category: 1 . 2. Continue annual screening with LDCT in 12 months. Electronically signed by: Elissa Rainey MD (12/18/2020 8:31 AM) [facility]
== END ==
LOC: KCIC CT 14:29
PROVIDERS: ATTEND Family Medicine
DX: Z12.2 Encounter for screening for malignant neoplasm of respiratory organs (principal); F17.210 Nicotine dependence, cigarettes, uncomplicated
CPT/HCPCS: 71271